=== PATIENT | female | born 1960 | race Caucasian/White ===

== ENCOUNTER → 2016-06-12 | Outpatient (CLI) | payer OTHER ==
[~2016-06-12] MED LIST: ACCUNEB 0.1.25 MG/3 INH; AMBIEN10 M1 PO; ANTIBIOTIC O500 U/GM TP; ATARAX25 MG PO; ATENOLOL100 M1 PO; ATENOLOL50 MG PO; ATROVENT I0.5 MG/2.5 INH; BENZONATATE100 M1 PO; BRIN20TA PO; CARAFATE1 G1 PO; CETIRIZINE10 MG PO; CIPRO500 MG PO; CIPROFLOXACIN500 MG PO; CLEOCIN150 MG PO; DARVOCET N 1001 TAB PO; DEXALONE30 MG PO; DICYCLOMINE10 MG PO; DOXYCYCLINE MO100 MG PO; FLEXERIL5 MG PO; Flovent 220 M220 MCG INH; HYDROCODONE BIT1 T11 PO; IMDUR SA30 MG PO; IMITREX100 MG PO; LEVAQUIN750 M1 PO; LEVOFLOXACIN500 MG PO; LEVOTHYROXIN0.025 MG PO; LEVOTHYROXINE0.05 MG PO; LISINOPRIL10 M1 PO; MEDROL DOSEPAK4 MG PO; METOCLOPRAMIDE10 MG PO; NYAMYC100000 U/G TP; OMEPRAZOLE40 MG PO; PANTOPRAZOLE SO40 MG PO; PERCOCET 325 MG1 TA2 PO; PREDNICOT20 MG PO; PREDNISONE20 MG PO; PREDNISONE50 MG PO; PROVENTIL0.09 MG/AC INH; RANEXA500 M1 PO; SEPTRA DS 800 M1 TAB PO; TESSALON PERLE200 MG PO; TOPAMAX50 MG PO; TRAMADOL HCL50 MG PO; VENTOLIN H0.09 MG/AC INH; VERAPAMIL SR240 M1 PO; VERAPAMIL240 MG PO; VIBRAMYCIN100 MG PO; VICODIN 5-3001 EACH PO; VICODIN 5/500 505 MG PO; VITAMIN D-32000 UNIT PO; XANAX0.25 MG PO; ZOFRAN4 MG PO; ZOLOFT100 MG PO
== END | disposition home or self-care (01) ==
LOC: RAD 09:19
DX: M79.602 Pain in left arm (principal); M79.645 Pain in left finger(s); R20.2 Paresthesia of skin

== ENCOUNTER 2017-01-15 20:25 | Emergency (ER) | payer OTHER ==
[~2017-01-15] VITALS: Ht 165.1 cm; Wt 163.3 kg
[2017-01-15 20:41] LABS: BASO # 0.1 10*3/uL (0.0-0.1); BASO % 0.5 % (0.0-1.0); EOS # 0.2 10*3/uL (0.0-0.4); EOS % 1.3 % (1.0-4.0); HEMATOCRIT 49.6 % (37.0-47.0); HEMOGLOBIN 16.9 g/dl (12.0-16.0); LYMPH # 3.1 10*3/uL (1.3-4.4); LYMPH % 21.5 % (27.0-41.0); MEAN CELL VOLUME 97.4 fl (81.0-99.0); MEAN CORPUSCULAR HGB 33.2 pg (27.0-31.0); MEAN CORPUSCULAR HGB CONC 34.1 g/dl (33.0-37.0); MEAN PLATELET VOLUME 9.3 fl (9.6-12.3); MONO # 0.8 10*3/uL (0.1-1.0); MONO % 5.7 % (3.0-9.0); NEUT # 10.1 10*3/uL (2.3-7.9); NEUT % 70.5 % (47.0-73.0); PLATELET COUNT AUTOMATED 271 10*3/uL (130-400); RED BLOOD COUNT 5.09 10*6/uL (4.10-5.10); RED CELL DISTRI WIDTH 14.5 % (0-14.5); WHITE BLOOD COUNT 14.3 10*3/uL (4.8-10.8)
[2017-01-15 20:49] LABS: ACT PARTIAL THROMBO TIME 24.4 SECONDS (20.8-31.5)
[2017-01-15 21:00] LABS: ALBUMIN 3.7 gm/dl (3.1-4.5); ALKALINE PHOSPHATASE 85 U/L (45-117); BUN 16 mg/dl (7-24); CHLORIDE 102 mmol/L (98-107); CREATININE 1.04 mg/dL (0.55-1.02); POTASSIUM 4.2 mmol/L (3.5-5.1); SGOT/AST 11 IU/L (3-35); SGPT/ALT 25 U/L (12-78); SODIUM 137 mmol/L (136-145); TOTAL PROTEIN 7.4 gm/dL (6.4-8.2)
[2017-01-15 21:02] LABS: TROPONIN I < 0.015 ng/ml (<0.045)
[2017-01-15 22:00] VITALS: BP 130/66
[2017-01-15] MEDS ORDERED: PROTONIX40 MG PO (22:19)
== END 2017-01-15 22:20 | disposition home or self-care (01) ==
LOC: ED 20:25
PROVIDERS: Emergency Medicine Emergency Medical Services
DX: K21.9 Gastro-esophageal reflux disease without esophagitis (principal); R07.9 Chest pain, unspecified; G89.29 Other chronic pain; M54.5 Low back pain; I95.9 Hypotension, unspecified; E03.9 Hypothyroidism, unspecified; Z98.890 Other specified postprocedural states; Z88.0 Allergy status to penicillin; Z88.5 Allergy status to narcotic agent; Z79.899 Other long term (current) drug therapy

== ENCOUNTER 2017-02-14 23:49 | Emergency (ER) | payer OTHER ==
[~2017-02-14] VITALS: Ht 160 cm; Wt 114.3 kg
[~2017-02-14 23:49] MED LIST changes: +PROTONIX40 MG PO
[2017-02-14 23:54] VITALS: BP 147/68
== END 2017-02-15 00:25 | disposition home or self-care (01) ==
LOC: ED 23:49
DX: S61.216A Laceration without foreign body of right little finger without damage to nail, initial encounter (principal); F17.200 Nicotine dependence, unspecified, uncomplicated; Z88.0 Allergy status to penicillin; Z88.6 Allergy status to analgesic agent; Z79.899 Other long term (current) drug therapy; W25.XXXA Contact with sharp glass, initial encounter; Y93.G1 Activity, food preparation and clean up; Y92.89 Other specified places as the place of occurrence of the external cause; Y99.8 Other external cause status

== ENCOUNTER → 2017-02-21 | Outpatient (CLI) | payer OTHER | END | disposition home or self-care (01) | LOC: CT 10:40 | DX: M51.36 Other intervertebral disc degeneration, lumbar region (principal); M12.88 Other specific arthropathies, not elsewhere classified, other specified site; M51.27 Other intervertebral disc displacement, lumbosacral region; R10.2 Pelvic and perineal pain; M54.16 Radiculopathy, lumbar region ==

== ENCOUNTER 2020-02-06 15:43 | Inpatient (IN) | payer OTHER ==
[~2020-02-06] VITALS: Ht 167.6 cm; Wt 107.7 kg
[2020-02-06] VITALS (20 sets, daily range): BP systolic 62–119; BP diastolic 00–80
[~2020-02-06 15:43] MED LIST changes: +FLAGYL500 MG PO
[2020-02-06] MEDS ORDERED: NEURONTIN300 MG PO (15:46)
[2020-02-06] MEDS ORDERED: LACTULOSE10 GM/15 M PO (15:47)
[2020-02-06] MEDS ORDERED: ENTRESTO 49 MG1 EACH PO (15:48)
--- NOTE | 2020-02-06 16:37 | NUR ---
PATIENT DENIES WOUNDS A&OX3.
[2020-02-06 17:00] LABS: BASO # 0.1 10*3/uL (0.0-0.1); BASO % 0.4 % (0.0-1.0); EOS # 0.1 10*3/uL (0.0-0.4); EOS % 0.9 % (1.0-4.0); HEMATOCRIT 36.7 % (37.0-47.0); LYMPH # 1.5 10*3/uL (1.3-4.4); MEAN CELL VOLUME 90.8 fl (81.0-99.0); MEAN CORPUSCULAR HGB 25.7 pg (27.0-31.0); MEAN CORPUSCULAR HGB CONC 28.3 g/dl (33.0-37.0); MEAN PLATELET VOLUME 9.9 fl (9.6-12.3); MONO # 0.7 10*3/uL (0.1-1.0); MONO % 5.9 % (3.0-9.0); NEUT # 9.4 10*3/uL (2.3-7.9); PLATELET COUNT AUTOMATED 296 10*3/uL (130-400); RED BLOOD COUNT 4.04 10*6/uL (4.10-5.10); RED CELL DISTRI WIDTH 24.2 % (0-14.5); WHITE BLOOD COUNT 11.9 10*3/uL (4.8-10.8)
[2020-02-06 17:33] LABS: ALKALINE PHOSPHATASE 92 U/L (45-117); BUN 39 mg/dl (7-24); CHLORIDE 107 mmol/L (98-107); POTASSIUM 3.8 mmol/L (3.5-5.1); SGOT/AST 8 IU/L (3-35); SGPT/ALT 21 U/L (12-78); SODIUM 138 mmol/L (136-145); TOTAL PROTEIN 6.5 gm/dL (6.4-8.2)
[2020-02-06 17:40] LABS: TROPONIN I < 0.015 ng/ml (<0.045)
--- NOTE | 2020-02-06 17:40 | NUR ---
PATIENT BLOOD GLUCOSE COMES BACK FROM LAB CRITICAL AT 38. DR SIMON NOTIFIED. MEAL TRAY HAS BEEN ORDERED STAT FOR PATIENT AND PATIENT GIVEN TWO ORANGE JUICES WITH 4 SUGAR PACKETS TOTAL AND ALSO NIDIA CRACKERS WITH PEANUT BUTTER.
--- NOTE | 2020-02-06 17:45 | NUR ---
PATIENT DRANK THE ORANGE JUICE AND ATE THE NIDIA CRACKERS WITH PEANUT BUTTER.
--- NOTE | 2020-02-06 18:16 | NUR ---
PATIENT BGL IS NOW AT [address] SIMON NOTIFIED.
--- NOTE | 2020-02-06 19:10 | NUR ---
PATIENT REPORT GIVEN TO SYDNI RN AT THIS TIME.
--- NOTE | 2020-02-06 19:48 | NUR ---
PT SELLPING AT THIS TIME CALL LIGHT IN REACH. SYDNI LAM RN.
--- NOTE | 2020-02-06 21:00 | NUR ---
A 59, admitted to ICCU, under the services of JERMAIN Best DO with a diagnosis of HYPOTENSION, FLUID OVERLOAD, CHF, AND RENAL FAILURE. Chief complaint is LOW B/P. Patient arrived via stretcher from ER. Monitor applied. Initial assessment completed. Vital signs taken and recorded. JERMAIN BEST DO notified of admission to the unit. Orders received. See assessment for past medical history, medications and allergies. Patient and/or family oriented to unit. [facility] ICCU visitation policy reviewed. Clothing/patient valuable form completed. CAIT GARCIA A
--- NOTE | 2020-02-06 21:00 | NUR ---
A 59, admitted to ICCU, under the services of JERMAIN Best DO with a diagnosis of HYPOTENSION. Chief complaint is SOB. Patient arrived via stretcher from ER. Monitor applied. Initial assessment completed. Vital signs taken and recorded. JERMAIN BEST DO notified of admission to the unit. Orders received. See assessment for past medical history, medications and allergies. Patient and/or family oriented to unit. [facility] ICCU visitation policy reviewed. Clothing/patient valuable form completed. DEBORAH CORONA
--- NOTE | 2020-02-06 21:22 | NUR ---
UNABLE TO VERIFY HOME MEDICATIONS PT MUMBLING AND DOESNT KNOW HOME MEDS. MED REC UPDATED IN ER. CAIT GARCIA RN
[2020-02-06 21:28] LABS: BILIRUBIN Negative (Negative); BLOOD Negative (Negative); CLARITY Cloudy (Clear); COLOR Yellow (Yellow); GLUCOSE Negative (Negative); KETONE Negative (Negative); LEUKO ESTERASE 2+ (Negative); NITRITE Negative (Negative); SPECIFIC GRAVITY 1.015 (1.001-1.030); UROBILINOGEN 0.2 E.U./dl (0.0-1.0)
--- NOTE | 2020-02-06 21:38 | NUR ---
CONSULTS FOR DR. GUILLAUME (TALKED WITH DR. ANDERSON) AND DR. HAYNES (TALKED WITH DR. CASTRO) COMPLETE. NO FURTHER ORDERS RECEIVED.
[2020-02-06 21:49] LABS: BACTERIA 1+; EPITHELIAL CELLS 31-40; RBC 0-2 rbc/hpf (0-2)
[2020-02-06 21:50] LABS: YEAST 1+
--- NOTE | 2020-02-06 22:40 | NUR ---
PT. MORE DROWSY. BEDSIDE GLUC 115, PT. WARM AND DRY. ABG'S ORDERED, AMMONIA LEVEL AND LACTIC ACID ORDERED AND DR. WHITE NOTIFIED. CAIT GARCIA RN
[2020-02-06 23:19] LABS: ARTERIAL BLOOD GAS PH 7.209 (7.35-7.45)
[2020-02-06 23:20] LABS: ABG BASE EXCESS -8.5 mmol/L (-2.0-2.0)
[2020-02-07] VITALS (89 sets, daily range): BP systolic 74–136; BP diastolic 27–93
--- NOTE | 2020-02-07 | NUR ---
DR. WHITE NOTIFIED OF AMMONIA LEVEL, ABG RESULTS AND URINE RESULTS. CAIT GARCIA RN
--- NOTE | 2020-02-07 04:58 | NUR ---
PT. PULLED IV OUT IN R HAND. RESTARTED IN L ARM. CLING WRAP APPLIED TO IV ONCE AGAIN. CAIT GARCIA RN
[2020-02-07 06:30] LABS: ALBUMIN 3.1 gm/dl (3.1-4.5); CREATININE 2.73 mg/dL (0.55-1.02); FREE T4 0.92 ng/dl (0.76-1.46); POTASSIUM 3.3 mmol/L (3.5-5.1); TOTAL PROTEIN 7.2 gm/dL (6.4-8.2)
[2020-02-07 06:31] LABS: BASO # 0.1 10*3/uL (0.0-0.1); BASO % 0.5 % (0.0-1.0); EOS # 0.2 10*3/uL (0.0-0.4); EOS % 1.7 % (1.0-4.0); HEMATOCRIT 38.6 % (37.0-47.0); LYMPH # 1.4 10*3/uL (1.3-4.4); LYMPH % 14.2 % (27.0-41.0); MEAN CELL VOLUME 88.1 fl (81.0-99.0); MEAN CORPUSCULAR HGB 25.6 pg (27.0-31.0); MEAN PLATELET VOLUME 9.7 fl (9.6-12.3); MONO # 0.5 10*3/uL (0.1-1.0); MONO % 5.5 % (3.0-9.0); NEUT # 7.6 10*3/uL (2.3-7.9); NEUT % 77.5 % (47.0-73.0); PLATELET COUNT AUTOMATED 337 10*3/uL (130-400); RED BLOOD COUNT 4.38 10*6/uL (4.10-5.10); RED CELL DISTRI WIDTH 23.8 % (0-14.5); WHITE BLOOD COUNT 9.8 10*3/uL (4.8-10.8)
[2020-02-07 06:34] LABS: THYROID STIM HORMONE (HS) 1.94 uIU/ml (0.358-4.75)
[2020-02-07 06:43] LABS: ACT PARTIAL THROMBO TIME 27.1 SECONDS (20.0-32.1)
--- NOTE | 2020-02-07 08:22 | NUR ---
PHYSICAL THERAPY Pt admitted with hypotension,CHF and renal failure please consult PT if pt has a decline in functional status below baseline thank you Siomara Truong PT
--- NOTE | 2020-02-07 08:35 | NUR ---
PT IS AWAKE AND ALERT. WHEN ASKED QUESTIONS R/T DATE AND PRESIDENT PT FIRST ANSWERS "[facility]" THEN SHE STOPS FOR A SECOND THEN ANSWERS THE QUESTIONS APPROPRIATELY. PT REMAINS ON A LEVOPHED GTT. MAP IS 87 AT THIS TIME. LEVOPHED GTT TITRATED DOWN TO 11MCG/MIN. LUNG MURRELL DIM. PT DENIES A COUGH AT THIS TIME. ABD. DISTENDED WITH ACTIVE BOWEL SOUNDS. MATIAS CATH PATENT FOR STRAW COLORED URINE. NO PERIPHERAL EDEMA NOTED AT THIS TIME. UPDATED PT ON HER CONDITION AND PLAN OF CARE. HER QUESTIONS WERE ANSWERED. BED ALARM ON FOR PT PROTECTION.
--- NOTE | 2020-02-07 10:18 | NUR ---
Nursing screen received and chart was reviewed. Patient is a 59 year old female admitted with hypotension and fluid overload. If patient has a decline in ADLs, tranfsers or functional mobility please send OT orders. Thank you. Page Cortez OTR/L
--- NOTE | 2020-02-07 11:40 | NUR ---
DR NIELSEN, DR RAMOS AND DR GUILLAUME IN TO SEE PT. NEW ORDERS RECEIVED.
--- NOTE | 2020-02-07 12:01 | NUR ---
Nitroglycerin Separator Operator in to talk to patient. Patient states lives at home with her . There are 0 steps in the home. There are 4 outside steps. Physician: Dr. Rafael Tran Pharmacy: [facility] Home health services: none Patient's level of ADLs: MINIMAL ASSIST Patient has working utilities: yes DME: cane, walker, O2 @ home, she states 10L at home, portable O2 tanks, nebulizer, O2 supplier medical supply Follow-up physician's appointment after d/c: will be made by the hospitalist nurse director upon discharge Does patient want to access PORTAL?: no Discharge plan discussed with patient. She lives at home with her . She states she is independent in her ADLs and ambulates with either a walker or a cane. Discussed short term rehab and she declines, stating she will return home with her . Discussed home health care services and she declines stating she will return home with her . Explained home health care services would come to her house for nursing and therapy and she declines. Will reach out to . She is unsure of discharge transportation at this time. DAVID HANDY
[2020-02-07 12:02] LABS: ABG BASE EXCESS -4.1 mmol/L (-2.0-2.0); ARTERIAL BLOOD GAS PH 7.317 (7.35-7.45)
--- NOTE | 2020-02-07 12:09 | NUR ---
Attempted to reach , Wilberto, with no success. Left voicemail. Awaiting return call.
--- NOTE | 2020-02-07 12:43 | NUR ---
DR RAMOS NOTIFIED OF ABG RESULTS. NEW ORDERS RECEIVED FOR BIPAP AND ABG TO BE DRAWN 2 HOURS AFTER STARTED.
--- NOTE | 2020-02-07 14:53 | NUR ---
Received call from [facility]. Patient was in [facility] from 01/15-01/30 with respiratory failure. She states they tried to send the patient to [facility] and the patient refused. Chente's cell phone # [phone] if she can provide any assistance.
--- NOTE | 2020-02-07 16:41 | NUR ---
DR RAMOS UPDATED THAT PT REFUSES BIPAP AND THAT PT IS ORDERED FOR NUCLEAR LUNG SCAN. DR RAMOS STATED THAT JUST INFORM PT THAT IF SHE WILL NOT WEAR THE BIPAP SHE MAY HAVE TO BE INTUBATED LATER. HE ALSO ORDERED TO D/C LUNG SCAN. PT WILL NOT TOLERATE IT AT THIS TIME.
--- NOTE | 2020-02-07 16:49 | NUR ---
DR GARRETT UPDATED ON PLAN OF CARE.
--- NOTE | 2020-02-07 17:00 | NUR ---
MEDICATED PT PER PRN ORDER WITH ZOFRAN FOR C/O NAUSEA AFTER ORDER RECEIVED FROM DR GARRETT.
--- NOTE | 2020-02-07 17:40 | NUR ---
PT STATES RELIEF OF NAUSEA WITH EARLIER ZOFRAN.
--- NOTE | 2020-02-07 20:44 | NUR ---
PT. RESTING IN BED. COMPLAINTS OF NAUSEA, ZOFRAN GIVEN PRIOR TO SHIFT. HEP LOCKS IN RA AND LA. LUNGS DIMINISHED BILAT, PULSE OX 96% ON 5L NC. ABDOMEN FIRMLY DISTENDEDE AND NORMO. TRACE ANKLE EDEMA NOTED. MATIAS CATH DRAINING A CLEAR YELLOW URINE. RESP. EASY AND REG, NO DISTRESS. CAIT GARCIA RN
[2020-02-08] VITALS (40 sets, daily range): BP systolic 95–136; BP diastolic 40–81
--- NOTE | 2020-02-08 01:42 | NUR ---
RESTING QUIET ON BIPAP AT THIS TIME. NO CHANGE IN LEVAPHED AT THIS TIME.
[2020-02-08 06:12] LABS: CREATININE 1.24 mg/dL (0.55-1.02); POTASSIUM 3.6 mmol/L (3.5-5.1)
[2020-02-08 06:14] LABS: TOTAL PROTEIN 6.9 gm/dL (6.4-8.2)
[2020-02-08 06:25] LABS: BASO # 0.1 10*3/uL (0.0-0.1); BASO % 1.2 % (0.0-1.0); EOS # 0.2 10*3/uL (0.0-0.4); EOS % 2.8 % (1.0-4.0); HEMATOCRIT 38.7 % (37.0-47.0); LYMPH # 1.4 10*3/uL (1.3-4.4); LYMPH % 18.5 % (27.0-41.0); MEAN CELL VOLUME 88.2 fl (81.0-99.0); MEAN CORPUSCULAR HGB 25.7 pg (27.0-31.0); MEAN CORPUSCULAR HGB CONC 29.2 g/dl (33.0-37.0); MEAN PLATELET VOLUME 9.6 fl (9.6-12.3); MONO # 0.6 10*3/uL (0.1-1.0); MONO % 8.2 % (3.0-9.0); NEUT # 5.3 10*3/uL (2.3-7.9); NEUT % 68.7 % (47.0-73.0); PLATELET COUNT AUTOMATED 332 10*3/uL (130-400); RED BLOOD COUNT 4.39 10*6/uL (4.10-5.10); RED CELL DISTRI WIDTH 23.9 % (0-14.5); WHITE BLOOD COUNT 7.8 10*3/uL (4.8-10.8)
[2020-02-08 07:18] LABS: ABG BASE EXCESS -1.3 mmol/L (-2.0-2.0); ARTERIAL BLOOD GAS PH 7.301 (7.35-7.45)
--- NOTE | 2020-02-08 11:00 | NUR ---
Occupational Therapy evaluation completed on ICCU with full evaluation to follow. Recommend occupational therapy per plan of care and SNF upon discharge. Thank you for this referral. Michelle Null OTR/L
--- NOTE | 2020-02-08 11:49 | NUR ---
CM in to see patient. She is sitting up in her bedside recliner. Discussed short term rehab as suggested by therapy. She refuses. She states "I am going home." Discussed home health care services and she declines. She states "I have my ." CM will continue to follow for any discharge planning needs. When medically stable she will be discharged to home.
--- NOTE | 2020-02-08 12:26 | NUR ---
PT. OFF BIPAP ON HFNC AT 15. SAT 94. PT IS RESTING QUIETYLY.
--- NOTE | 2020-02-08 13:36 | NUR ---
Up to chair. for 45 min w/ PT. Titrating levophed down.
--- NOTE | 2020-02-08 13:36 | NUR ---
video visit w/ dr. Ayana love to transfer to telemetry when levophed is off.
--- NOTE | 2020-02-08 17:25 | NUR ---
PATIENT STATES PAIN 9/10 IN HER LEGS, CHRONIC FROM OLD ACCIDENT. TAKES NORCO AT HOME DR BARRY MADE AWARE
--- NOTE | 2020-02-08 18:36 | NUR ---
Medicated for c/o pain 11/17.
--- NOTE | 2020-02-08 22:24 | NUR ---
REFUSING BIPAP THIS SHIFT. STATES FEELING NAUSEATED. JUST TOOK HER LACTULOSE. WILL MONITOR
--- NOTE | 2020-02-08 23:47 | NUR ---
IV AMPARO OUT. NEW SITE INSERTED.IV started left hand with #20 protective cath after 1 attempts. Site prepped with Chloroprep. Sterile dressing applied. Patient tolerated procedure well. DUSTIN ESPINOZA
[2020-02-09] VITALS: BP 119/55
--- NOTE | 2020-02-09 00:34 | NUR ---
FER MODERATLY EFECTIVE FOR NAUSES. SITTING UP WATCHING TV. INCREASED FLATUS NOTED
--- NOTE | 2020-02-09 00:35 | NUR ---
FER MODERATLY EFECTIVE FOR NAUSES. SITTING UP WATCHING TV. INCREASED FLATUS NOTED
--- NOTE | 2020-02-09 02:50 | NUR ---
FER MODERATLY EFECTIVE FOR NAUSES. SITTING UP WATCHING TV. INCREASED FLATUS NOTED
[2020-02-09 04:00] VITALS: BP 114/49
[2020-02-09 06:11] LABS: CREATININE 1.2 mg/dL (0.55-1.02); POTASSIUM 3.6 mmol/L (3.5-5.1); TOTAL PROTEIN 6.9 gm/dL (6.4-8.2)
[2020-02-09 06:14] LABS: BASO # 0.1 10*3/uL (0.0-0.1); BASO % 0.8 % (0.0-1.0); EOS # 0.2 10*3/uL (0.0-0.4); EOS % 2.1 % (1.0-4.0); HEMATOCRIT 39.2 % (37.0-47.0); LYMPH # 1.9 10*3/uL (1.3-4.4); LYMPH % 22.3 % (27.0-41.0); MEAN CELL VOLUME 88.5 fl (81.0-99.0); MEAN CORPUSCULAR HGB CONC 29.3 g/dl (33.0-37.0); MEAN PLATELET VOLUME 10.1 fl (9.6-12.3); MONO # 0.6 10*3/uL (0.1-1.0); MONO % 7.2 % (3.0-9.0); NEUT # 5.7 10*3/uL (2.3-7.9); PLATELET COUNT AUTOMATED 296 10*3/uL (130-400); RED BLOOD COUNT 4.43 10*6/uL (4.10-5.10); RED CELL DISTRI WIDTH 23.3 % (0-14.5); WHITE BLOOD COUNT 8.6 10*3/uL (4.8-10.8)
[2020-02-09 08:00] VITALS: BP 128/75
[2020-02-09 09:01] LABS: ABG BASE EXCESS -0.4 mmol/L (-2.0-2.0); ARTERIAL BLOOD GAS PH 7.318 (7.35-7.45)
--- NOTE | 2020-02-09 09:01 | NUR ---
Awake and alert this AM, No c/o. Dr. Hernandez and Jarad in to evaulate. Transfer ordered recieved. Multifocal Lens Assembler aware of transfer order.
--- NOTE | 2020-02-09 10:25 | NUR ---
Up to BSC for small soft bm. partial bath at bedside then assisted to chair. Awaiting bed assignment.
--- NOTE | 2020-02-09 11:01 | NUR ---
CM in to see patient. No new needs or request at this time. Discussed short term rehab and home health care services and she continues to refuse. When medically stable she will be discharged to home.
--- NOTE | 2020-02-09 11:24 | NUR ---
PHYSICAL THERAPY Patient presented [facility] with 3 liters of spO2 VIA NASAL CANULA and attached to telemetry. Patient has report of no pain. Patient gives informed consent for treatment. Patient was identified by name and on wristband. Patient O2 SAT was recorded as 93% prior to therapy session. Patient performed STS <> bedside chair with SBA. Patient ambulated with Wh Walker and Close Supervision with two therapists managing O2 TANK, portable telemtry and monitoring O2 and pulse. Patient ambulated with Wh Walker and Close Supervision for 40' x 2 with no LOB and Minimal SOB with O2 SATS/PULSE reorded at 86%/118 at the end of the first 40' x 1. Patient standing rest break at 40' x 1. Patient sat in bedside chair with SBA. Patient was left in sitting in bedside chair with 3 liters of spO2 connected to wall outlet and telemetry reconnected to main monitor. Patient call light within reach. Patient was 1:1 withthitiburcio WHEEL INSTALLER for 15 minutes total. JANETTE BARTH WHEEL INSTALLER
--- NOTE | 2020-02-09 11:25 | NUR ---
OT NOTE Pt was seen this A.M. 1:1 for 20 minute OT session. Upon arrival pt was sitting upright in the recliner. Pt identified by name and and had no complaints at this time. Pt presented to therapy with continuous 3L-O2 via NC which she remained on throughout the entire session. Pt's resting SpO2 read 93% and heart rate 103 bpm. While seated pt donned B socks with supervision while forward flexed at the waist. Pt was educated on energy conservation technique of bringing her leg up to knee level to help conserve energy and avoid SOB, pt was still able to complete with supervision. Sit to stand completed from chair level with SBA followed by standing pivot to the bedside commode with SBA. There she transferred on/off bedside commode and completed all toileting tasks with SBA. Pt then completed functional mobility around the room with SBA and use of w/w, after aprox 3 minutes of activity pt's SpO2 dropped to 89% and heart rate 113 bpm. After aprox 15 seconds SpO2 raised back to 90%. Pt was left sitting upright in the recliner with call light in hand, tray table in place, and ICCU nurse notified. Continue with rec D/C plan to SNF. SRIKANTH Addison
--- NOTE | 2020-02-09 11:29 | NUR ---
Medicated for c/o generalized pain scale 9/10. pt. experiences chronic pain and states that 2-3/10 is tolerable for her .
[2020-02-09 12:00] VITALS: BP 122/99
--- NOTE | 2020-02-09 13:35 | NUR ---
SAtates pain med was effective in reducing pain to scale 8/10.
--- NOTE | 2020-02-09 15:12 | NUR ---
Nutritional Supprt Services Note: Appetite is good for meals, She receives a regular diet as ordered. Ht.5'6 Wt.236# IBW 120-140. Pt declines need for diet. No other nutrition intervention needed at this time. Will follow as needed. Malou Disla Rdn Ld
[2020-02-09 16:00] VITALS: BP 135/61
--- NOTE | 2020-02-09 18:42 | NUR ---
Requested 2 tylenol for headache , given. Remains up in chair. family brought in cell phone and it was recieved and given to this pt. Continue awaiting bed assignment.
--- NOTE | 2020-02-09 19:49 | NUR ---
194 FER IV FOR C/O'S NAUSEA. NO EMESIS NOTED. WILL MONITOR. SITTING IN RECLINER CHAIR AT BEDSIDE. ALERT AND PLEASANT. PULSE OX 95% ON 5L. AFEBRILE. HEP LOCK INTACT. MO DISTRESS NOTED.
[2020-02-09 20:00] VITALS: BP 135/69
--- NOTE | 2020-02-09 20:49 | NUR ---
EARLIER ZOFRAN EFFECTIVE.
--- NOTE | 2020-02-09 21:52 | NUR ---
NORCO 1 PO GIVEN FOR C/O'S PAIN. RESTING IN BED WATCHING TV. WILL MONITOR.
--- NOTE | 2020-02-09 22:52 | NUR ---
EARLIER NORCO EFFECTIVE.
[2020-02-10] VITALS: BP 121/65
--- NOTE | 2020-02-10 | NUR ---
0000 BIPAP APPLIED. TOLERATING WELL 0400 BIPAP REMOVED. PT KEEPS TAKING IT OFF TO GET UP TO BSC. DESATS TO 69% WITHOUT 02. PLACED BACK ON NC.
--- NOTE | 2020-02-10 05:57 | NUR ---
NORCO PO FOR C/O'S H/A. WILL MONITOR. 02 INTACT. VIA NC. HEP LOCK INTACT. PULSE OX 95%. CONDITION GUARDED.
[2020-02-10 06:06] LABS: CREATININE 1.15 mg/dL (0.55-1.02); POTASSIUM 3.3 mmol/L (3.5-5.1)
[2020-02-10 06:08] LABS: BASO # 0.1 10*3/uL (0.0-0.1); BASO % 0.7 % (0.0-1.0); EOS # 0.3 10*3/uL (0.0-0.4); HEMATOCRIT 35.3 % (37.0-47.0); LYMPH # 2.1 10*3/uL (1.3-4.4); LYMPH % 24.9 % (27.0-41.0); MEAN CORPUSCULAR HGB 26.2 pg (27.0-31.0); MEAN CORPUSCULAR HGB CONC 29.7 g/dl (33.0-37.0); MEAN PLATELET VOLUME 9.5 fl (9.6-12.3); MONO # 0.6 10*3/uL (0.1-1.0); MONO % 7.1 % (3.0-9.0); NEUT # 5.3 10*3/uL (2.3-7.9); NEUT % 63.7 % (47.0-73.0); PLATELET COUNT AUTOMATED 274 10*3/uL (130-400); RED BLOOD COUNT 4.01 10*6/uL (4.10-5.10); RED CELL DISTRI WIDTH 22.5 % (0-14.5); TOTAL PROTEIN 6.5 gm/dL (6.4-8.2); WHITE BLOOD COUNT 8.4 10*3/uL (4.8-10.8)
[2020-02-10 08:00] VITALS: BP 123/71
[2020-02-10 09:15] LABS: ABG BASE EXCESS 0.7 mmol/L (-2.0-2.0); ARTERIAL BLOOD GAS PH 7.355 (7.35-7.45)
--- NOTE | 2020-02-10 09:27 | NUR ---
CM in to see patient. Discussed home health care services and she is agreeable. When provided with a list of agencies she chose [facility]. Notified hospitalist nurse director. When medically stable she will be discharged to home with [facility] services.
--- NOTE | 2020-02-10 10:24 | NUR ---
OT NOTE Pt was seen this A.M. 1:1 for 26 minute OT session. Upon arrival pt was supine in bed. Pt identified by name and and had no complaints at this time. Pt presneted to therapy with continuous 3L-O2 via [facility] she remained on throughout the entire session. Pt's resting SpO2 read 93%. Pt transferred supine to sit EOB with SBA. Upon arrival to EOB pt's SpO2 dropped to 88% and raised to 93% with aprox 10 seconds. While sitting EOB pt donned B socks with SBA using compensatory technique of bringing her legs up to bed level. Sit to stand completed from bed level with CGA for safety and use of w/w for UE support followed by functional mobility to the bedside commode with CGA. There she transferred on/off bedside commode with CGA, clothing management completed with CGA, and toilet hygiene completed MN while seated. Functional mobility was then completed around the room with CGA and use of w/w. Throughout pt's Spo2 dropped to 87% and raised to 90% within aprox 20 seconds. After returning to the recliner pt completed BUE towel exercises over all planes for 1 X 10 with min resistance to increase and restore maximum functional strength and use. Pt was left sitting upright in the recliner with call light in reach, tray table in place, and ICCU nurse notified. Continue with rec D/C plan to SNF. SRIKANTH Addison
--- NOTE | 2020-02-10 10:55 | NUR ---
PHYSICAL THERAPY Patient presented to therapy in sitting in bedside chair with 3 liters of spO2 VIA NASAL CANULA. Patient gives informed consent for treatment. Patient was identified by name nd on wristband. Patient reports no complaints. Portable Telemetry machine attached and portable O2 tank in tow with 3 liters. Patient completed STS from bedside chair with SBA. Patient ambulated 90' x [facility] to room with no LOB and two brief standing rest breaks with O2 sat dropping to 87% and pulse 113 with 90' gait. Patient sat in bedside chair and performed bilateral LE ther ex 2 x 10 reps each in all planes of movement for strengthening the LEs including LAQs, marches, heel/toe raises and hip abduction. Patient was left in bedside chair with call light within reach, O2 connected to wall outlet with 3 liters of spO2 and LEs left in low position. Patient O2 SAT returned to 91% - 93% post ambulating and pulse at 87 within 1 minute. Patient was 1:1 with this ELECTROMECHANICAL ASSEMBLER for 21 minutes total. JANETTE BARTH ELECTROMECHANICAL ASSEMBLER
--- NOTE | 2020-02-10 11:36 | NUR ---
Faxed home health referral to [facility] along with face to face and clinical
[2020-02-10 12:00] VITALS: BP 105/67
[2020-02-10] MEDS ORDERED: FUROSEMIDE40 MG PO (14:32)
[2020-02-10] MEDS ORDERED: KLOR-CON M2020 ME1 PO (14:32)
--- NOTE | 2020-02-10 14:38 | NUR ---
Notified Medina at [facility] of patient's discharge today.
[2020-02-10] MEDS ORDERED: XARE20MG PO (15:14)
[2020-02-10 16:00] VITALS: BP 112/57
--- NOTE | 2020-02-10 16:30 | NUR ---
Discharge instruction given, pt. voiced understanding. Informed that she would need to take her xarelto this evening. Discharged to home [facility] to follow.
--- NOTE | 2020-02-11 07:41 | NUR ---
PHYSICAL THERAPY CO-SIGN I approve of the Physical Therapy notes written above. Siomara Truong PT
--- NOTE | 2020-02-11 07:42 | NUR ---
OCCUPATIONAL THERAPY CO-SIGN I approve of the Occupational Therapy notes written above. KEERTHI POWERS, OTR/L
== END 2020-02-10 16:30 | disposition home health service (06) | DRG 133 ==
LOC: ED 15:43 → EDHOLD 18:46 → ICCU 18:46 → EDHOLD 19:14 → ICCU 20:16
PROVIDERS: Family Medicine; Internal Medicine; Internal Medicine Critical Care Medicine; Student in an Organized Health Care Education/Training Program; ADMIT Internal Medicine; ATTEND Internal Medicine
PROC: 5A09357 Assistance with Respiratory Ventilation, Less than 24 Consecutive Hours, Continuous Positive Airway Pressure (ICD-10-PCS; principal; 2020-02-08)
DX: J96.21 Acute and chronic respiratory failure with hypoxia (principal); I11.0 Hypertensive heart disease with heart failure; N17.0 Acute kidney failure with tubular necrosis; E87.2 Acidosis; E78.1 Pure hyperglyceridemia; E83.42 Hypomagnesemia; I95.9 Hypotension, unspecified; E78.5 Hyperlipidemia, unspecified; R00.0 Tachycardia, unspecified; R73.9 Hyperglycemia, unspecified; E87.6 Hypokalemia; J96.22 Acute and chronic respiratory failure with hypercapnia; E87.8 Other disorders of electrolyte and fluid balance, not elsewhere classified; E83.39 Other disorders of phosphorus metabolism; E72.20 Disorder of urea cycle metabolism, unspecified; N39.0 Urinary tract infection, site not specified; E03.9 Hypothyroidism, unspecified; K21.9 Gastro-esophageal reflux disease without esophagitis; I50.43 Acute on chronic combined systolic (congestive) and diastolic (congestive) heart failure; J44.9 Chronic obstructive pulmonary disease, unspecified; G93.41 Metabolic encephalopathy; B37.3 Candidiasis of vulva and vagina; E66.01 Morbid (severe) obesity due to excess calories; G47.33 Obstructive sleep apnea (adult) (pediatric); B96.20 Unspecified Escherichia coli [E. coli] as the cause of diseases classified elsewhere; Z16.12 Extended spectrum beta lactamase (ESBL) resistance; D64.9 Anemia, unspecified; K74.60 Unspecified cirrhosis of liver; Z20.828 Contact with and (suspected) exposure to other viral communicable diseases; K57.90 Diverticulosis of intestine, part unspecified, without perforation or abscess without bleeding; F17.210 Nicotine dependence, cigarettes, uncomplicated; Z88.5 Allergy status to narcotic agent; Z88.0 Allergy status to penicillin; Z91.041 Radiographic dye allergy status; Z91.048 Other nonmedicinal substance allergy status; Z98.891 History of uterine scar from previous surgery; Z90.49 Acquired absence of other specified parts of digestive tract; Z80.0 Family history of malignant neoplasm of digestive organs; Z82.49 Family history of ischemic heart disease and other diseases of the circulatory system; Z79.899 Other long term (current) drug therapy; Z86.711 Personal history of pulmonary embolism; Z68.38 Body mass index [BMI] 38.0-38.9, adult

== ENCOUNTER → 2021-04-10 | Outpatient (CLI) | payer OTHER ==
[~2021-04-10] MED LIST changes: +ENTRESTO 49 MG1 EACH PO; +FUROSEMIDE40 MG PO; +KLOR-CON M2020 ME1 PO; +LACTULOSE10 GM/15 M PO; +NEURONTIN300 MG PO; +XARE20MG PO
== END ==
LOC: RAD 15:54
PROVIDERS: ATTEND Preventive Medicine Occupational Medicine
DX: J43.9 Emphysema, unspecified (principal); I50.42 Chronic combined systolic (congestive) and diastolic (congestive) heart failure; R63.5 Abnormal weight gain

== ENCOUNTER 2021-06-06 22:18 | Inpatient (IN) | payer OTHER ==
[~2021-06-06] VITALS: Ht 162.6 cm; Wt 108.9 kg
[2021-06-06 22:20] VITALS: BP 111/72
[2021-06-06 22:53] LABS: HEMATOCRIT 53.2 % (37.0-47.0); MEAN CELL VOLUME 82.5 fl (81.0-99.0); MEAN CORPUSCULAR HGB 22.6 pg (27.0-31.0); MEAN CORPUSCULAR HGB CONC 27.4 g/dl (33.0-37.0); MEAN PLATELET VOLUME 9.2 fl (9.6-12.3); NUCLEATED RED BLOOD CELL 0.1 10*3/uL (0.0-0.0); NUCLEATED RED BLOOD CELL 0.6 % (0.0-0.0); PLATELET COUNT AUTOMATED 330 10*3/uL (130-400); RED BLOOD COUNT 6.45 10*6/uL (4.10-5.10); RED CELL DISTRI WIDTH 22.4 % (0-14.5); WHITE BLOOD COUNT 20.7 10*3/uL (4.8-10.8)
[2021-06-06 22:58] LABS: MANUAL DIFF REFLEX YES
[2021-06-06 23:08] LABS: ACT PARTIAL THROMBO TIME 36.4 SECONDS (20.0-32.1); INTERNATIONAL NORM RATIO 1.3 (2.0-3.5)
[2021-06-06 23:09] LABS: CREATININE 1.53 mg/dL (0.55-1.02); POTASSIUM 5.2 mmol/L (3.5-5.1); TOTAL PROTEIN 7.1 gm/dL (6.4-8.2)
[2021-06-06 23:17] LABS: PLATELET SUFFICIENCY NORMAL (NORMAL); TOTAL CELLS COUNTED 100 #CELLS
[2021-06-06 23:18] LABS: OVALOCYTES FEW
[2021-06-06 23:25] LABS: ABG BASE EXCESS -2.3 mmol/L (-2.0-2.0); ARTERIAL BLOOD GAS PO2 74.9 (80-90)
[2021-06-06 23:28] LABS: ARTERIAL BLOOD GAS PH 7.161 (7.35-7.45)
[2021-06-06 23:33] VITALS: BP 111/62
[2021-06-07] VITALS (11 sets, daily range): BP systolic 90–129; BP diastolic 38–71
[2021-06-07 01:27] LABS: ARTERIAL BLOOD GAS PO2 69.7 (80-90)
[2021-06-07 01:36] LABS: ABG BASE EXCESS -5.8 mmol/L (-2.0-2.0); ARTERIAL BLOOD GAS PH 7.131 (7.35-7.45)
[2021-06-07 04:36] LABS: MEAN CELL VOLUME 82.7 fl (81.0-99.0); MEAN CORPUSCULAR HGB 22.7 pg (27.0-31.0); MEAN CORPUSCULAR HGB CONC 27.4 g/dl (33.0-37.0); MEAN PLATELET VOLUME 8.9 fl (9.6-12.3); NUCLEATED RED BLOOD CELL 0.1 10*3/uL (0.0-0.0); NUCLEATED RED BLOOD CELL 0.3 % (0.0-0.0); PLATELET COUNT AUTOMATED 304 10*3/uL (130-400); RED BLOOD COUNT 6.53 10*6/uL (4.10-5.10); RED CELL DISTRI WIDTH 22.5 % (0-14.5); WHITE BLOOD COUNT 20.4 10*3/uL (4.8-10.8)
[2021-06-07 04:48] LABS: CREATININE 1.49 mg/dL (0.55-1.02); POTASSIUM 5.9 mmol/L (3.5-5.1); TOTAL PROTEIN 7.2 gm/dL (6.4-8.2)
[2021-06-07] MEDS ORDERED: VICO75300 PO (05:07)
[2021-06-07] MEDS ORDERED: THEO-24200 MG PO (05:09)
[2021-06-07] MEDS ORDERED: GLIPIZIDE2.5 MG PO (05:10)
[2021-06-07] MEDS ORDERED: ENTRESTO 97 MG1 EACH PO (05:11)
[2021-06-07] MEDS ORDERED: ZYPREXA7.5 M1 PO (05:11)
[2021-06-07] MEDS ORDERED: ACETAZOLAMIDE250 MG PO (05:11)
[2021-06-07] MEDS ORDERED: BREZTRI AEROS10.7 GM INH (05:12)
[2021-06-07 06:20] LABS: PLATELET SUFFICIENCY NORMAL (NORMAL); TOTAL CELLS COUNTED 100 #CELLS
[2021-06-07 06:21] LABS: MANUAL DIFF REFLEX YES
[2021-06-07 07:43] LABS: ABG BASE EXCESS -2.7 mmol/L (-2.0-2.0); ARTERIAL BLOOD GAS PO2 90.5 (80-90)
[2021-06-07 07:47] LABS: ARTERIAL BLOOD GAS PH 7.172 (7.35-7.45)
[2021-06-07 10:20] LABS: ABG BASE EXCESS -4.6 mmol/L (-2.0-2.0); ARTERIAL BLOOD GAS PO2 102.5 (80-90)
[2021-06-07 10:22] LABS: ARTERIAL BLOOD GAS PH 7.157 (7.35-7.45)
[2021-06-07 13:03] LABS: ABG BASE EXCESS -2.1 mmol/L (-2.0-2.0); ARTERIAL BLOOD GAS PH 7.223 (7.35-7.45); ARTERIAL BLOOD GAS PO2 63.6 (80-90)
[2021-06-07 15:15] LABS: CREATININE 1.76 mg/dL (0.55-1.02); POTASSIUM 5.3 mmol/L (3.5-5.1)
[2021-06-08] VITALS (9 sets, daily range): BP systolic 92–133; BP diastolic 42–79
[2021-06-08 05:15] LABS: POTASSIUM 4.9 mmol/L (3.5-5.1)
[2021-06-08 05:18] LABS: CREATININE 1.31 mg/dL (0.55-1.02); TOTAL PROTEIN 6.8 gm/dL (6.4-8.2)
[2021-06-08 05:24] LABS: FREE T4 0.77 ng/dl (0.76-1.46); THYROID STIM HORMONE (HS) 0.501 uIU/ml (0.358-4.75)
[2021-06-08 06:25] LABS: MEAN CORPUSCULAR HGB 23.1 pg (27.0-31.0); MEAN CORPUSCULAR HGB CONC 28.1 g/dl (33.0-37.0); MEAN PLATELET VOLUME 9.8 fl (9.6-12.3); NUCLEATED RED BLOOD CELL 0.1 10*3/uL (0.0-0.0); NUCLEATED RED BLOOD CELL 0.4 % (0.0-0.0); PLATELET COUNT AUTOMATED 290 10*3/uL (130-400); RED BLOOD COUNT 6.46 10*6/uL (4.10-5.10); RED CELL DISTRI WIDTH 22.1 % (0-14.5); WHITE BLOOD COUNT 13.7 10*3/uL (4.8-10.8)
[2021-06-08 06:28] LABS: MANUAL DIFF REFLEX YES
[2021-06-08 07:17] LABS: TOTAL CELLS COUNTED 100 #CELLS
[2021-06-08 07:18] LABS: PLATELET SUFFICIENCY NORMAL (NORMAL); POLYCHROMASIA SLIGHT
[2021-06-08 07:38] LABS: ABG BASE EXCESS 2.3 mmol/L (-2.0-2.0); ARTERIAL BLOOD GAS PH 7.323 (7.35-7.45); ARTERIAL BLOOD GAS PO2 99.8 (80-90)
[2021-06-09] VITALS (13 sets, daily range): BP systolic 101–140; BP diastolic 45–78
[2021-06-09 05:20] LABS: CREATININE 1.23 mg/dL (0.55-1.02); POTASSIUM 4.7 mmol/L (3.5-5.1); TOTAL PROTEIN 6.6 gm/dL (6.4-8.2)
[2021-06-09 06:07] LABS: HEMATOCRIT 52.2 % (37.0-47.0); MEAN CELL VOLUME 80.8 fl (81.0-99.0); MEAN CORPUSCULAR HGB 22.4 pg (27.0-31.0); MEAN CORPUSCULAR HGB CONC 27.8 g/dl (33.0-37.0); MEAN PLATELET VOLUME 9.7 fl (9.6-12.3); NUCLEATED RED BLOOD CELL 0.1 % (0.0-0.0); PLATELET COUNT AUTOMATED 307 10*3/uL (130-400); RED BLOOD COUNT 6.46 10*6/uL (4.10-5.10); WHITE BLOOD COUNT 16.9 10*3/uL (4.8-10.8)
[2021-06-09 06:18] LABS: MANUAL DIFF REFLEX YES
[2021-06-09 06:51] LABS: PLATELET SUFFICIENCY NORMAL (NORMAL); TOTAL CELLS COUNTED 100 #CELLS
[2021-06-09 06:52] LABS: MICROCYTOSIS SLIGHT; POLYCHROMASIA SLIGHT; STOMATOCYTE FEW
[2021-06-09 06:53] LABS: VACUOLATION OF NEUTROPHILS SLIGHT
[2021-06-10] VITALS: BP 116/72
[2021-06-10 06:18] LABS: BASO % 0.2 % (0.0-1.0); EOS % 0.1 % (1.0-4.0); HEMATOCRIT 51.2 % (37.0-47.0); LYMPH # 1.8 10*3/uL (1.3-4.4); LYMPH % 9.2 % (27.0-41.0); MEAN CELL VOLUME 80.8 fl (81.0-99.0); MEAN CORPUSCULAR HGB CONC 28.5 g/dl (33.0-37.0); MEAN PLATELET VOLUME 9.4 fl (9.6-12.3); MONO # 1.2 10*3/uL (0.1-1.0); MONO % 6.2 % (3.0-9.0); NEUT # 16.4 10*3/uL (2.3-7.9); NEUT % 83.4 % (47.0-73.0); PLATELET COUNT AUTOMATED 341 10*3/uL (130-400); RED BLOOD COUNT 6.34 10*6/uL (4.10-5.10); WHITE BLOOD COUNT 19.6 10*3/uL (4.8-10.8)
[2021-06-10 06:35] LABS: ALKALINE PHOSPHATASE 83 U/L (45-117); CHLORIDE 100 mmol/L (98-107); CREATININE 0.91 mg/dL (0.55-1.02); POTASSIUM 4.2 mmol/L (3.5-5.1); SGOT/AST 6 IU/L (3-35); SGPT/ALT 22 U/L (12-78); SODIUM 138 mmol/L (136-145); TOTAL PROTEIN 6.6 gm/dL (6.4-8.2)
[2021-06-10 06:36] LABS: BUN 41 mg/dl (7-24)
[2021-06-10 08:00] VITALS: BP 137/64
[2021-06-10 12:00] VITALS: BP 131/61
[2021-06-10 15:53] LABS: ABG BASE EXCESS 3.4 mmol/L (-2.0-2.0); ARTERIAL BLOOD GAS PH 7.327 (7.35-7.45); ARTERIAL BLOOD GAS PO2 80.4 (80-90)
[2021-06-10 16:00] VITALS: BP 129/66
[2021-06-10 20:00] VITALS: BP 125/66
[2021-06-11] VITALS: BP 126/71
[2021-06-11 06:05] LABS: ALKALINE PHOSPHATASE 86 U/L (45-117); CHLORIDE 101 mmol/L (98-107); CREATININE 0.93 mg/dL (0.55-1.02); POTASSIUM 4.3 mmol/L (3.5-5.1); SGOT/AST 8 IU/L (3-35); SGPT/ALT 27 U/L (12-78); SODIUM 139 mmol/L (136-145)
[2021-06-11 06:16] LABS: BUN 29 mg/dl (7-24)
[2021-06-11 06:38] LABS: BASO % 0.1 % (0.0-1.0); HEMATOCRIT 48.5 % (37.0-47.0); LYMPH # 1.3 10*3/uL (1.3-4.4); LYMPH % 8.3 % (27.0-41.0); MEAN CELL VOLUME 82.6 fl (81.0-99.0); MEAN CORPUSCULAR HGB 22.8 pg (27.0-31.0); MEAN CORPUSCULAR HGB CONC 27.6 g/dl (33.0-37.0); MEAN PLATELET VOLUME 9.6 fl (9.6-12.3); MONO # 0.9 10*3/uL (0.1-1.0); MONO % 5.5 % (3.0-9.0); NEUT # 13.2 10*3/uL (2.3-7.9); NEUT % 85.4 % (47.0-73.0); PLATELET COUNT AUTOMATED 295 10*3/uL (130-400); RED BLOOD COUNT 5.87 10*6/uL (4.10-5.10); RED CELL DISTRI WIDTH 21.4 % (0-14.5); WHITE BLOOD COUNT 15.4 10*3/uL (4.8-10.8)
[2021-06-11 08:00] VITALS: BP 144/66
[2021-06-11 12:00] VITALS: BP 136/63
[2021-06-11 16:00] VITALS: BP 141/67
[2021-06-11 20:00] VITALS: BP 130/56
[2021-06-12] VITALS: BP 111/83
[2021-06-12 06:12] LABS: BASO % 0.2 % (0.0-1.0); EOS % 0.1 % (1.0-4.0); HEMATOCRIT 48.8 % (37.0-47.0); LYMPH # 1.9 10*3/uL (1.3-4.4); LYMPH % 10.2 % (27.0-41.0); MEAN CORPUSCULAR HGB 23.4 pg (27.0-31.0); MEAN CORPUSCULAR HGB CONC 28.5 g/dl (33.0-37.0); MEAN PLATELET VOLUME 9.2 fl (9.6-12.3); MONO % 5.5 % (3.0-9.0); NEUT # 15.4 10*3/uL (2.3-7.9); NEUT % 83.3 % (47.0-73.0); PLATELET COUNT AUTOMATED 264 10*3/uL (130-400); RED BLOOD COUNT 5.95 10*6/uL (4.10-5.10); RED CELL DISTRI WIDTH 21.3 % (0-14.5); WHITE BLOOD COUNT 18.5 10*3/uL (4.8-10.8)
[2021-06-12 06:22] LABS: BUN 20 mg/dl (7-24); CHLORIDE 99 mmol/L (98-107); CREATININE 0.85 mg/dL (0.55-1.02); POTASSIUM 3.9 mmol/L (3.5-5.1); SODIUM 138 mmol/L (136-145)
[2021-06-12 08:00] VITALS: BP 154/68
[2021-06-12] MEDS ORDERED: PREDNISONE10 MG PO (10:44)
[2021-06-12] MEDS ORDERED: LEVOFLOXACIN750 M2 PO (10:44)
[2021-06-12] MEDS ORDERED: NATURE'S BLEND F1 MG PO (10:44)
== END 2021-06-12 12:00 | disposition home or self-care (01) | DRG 720 ==
LOC: ED 22:18 → EDHOLD 06-07 00:27 → ICCU 06-07 00:27 → 5E 06-09 15:11
PROVIDERS: Emergency Medicine; Family Medicine; Internal Medicine; ADMIT Internal Medicine; ATTEND Internal Medicine
PROC: 5A0935A Assistance with Respiratory Ventilation, Less than 24 Consecutive Hours, High Flow/Velocity Cannula (ICD-10-PCS; principal; 2021-06-06)
PROC: 5A09457 Assistance with Respiratory Ventilation, 24-96 Consecutive Hours, Continuous Positive Airway Pressure (ICD-10-PCS; 2021-06-06)
PROC: 5A0935A Assistance with Respiratory Ventilation, Less than 24 Consecutive Hours, High Flow/Velocity Cannula (ICD-10-PCS; 2021-06-09)
PROC: 5A09357 Assistance with Respiratory Ventilation, Less than 24 Consecutive Hours, Continuous Positive Airway Pressure (ICD-10-PCS; 2021-06-10)
PROC: 5A0935A Assistance with Respiratory Ventilation, Less than 24 Consecutive Hours, High Flow/Velocity Cannula (ICD-10-PCS; 2021-06-10)
PROC: 5A09357 Assistance with Respiratory Ventilation, Less than 24 Consecutive Hours, Continuous Positive Airway Pressure (ICD-10-PCS; 2021-06-11)
PROC: 5A0935A Assistance with Respiratory Ventilation, Less than 24 Consecutive Hours, High Flow/Velocity Cannula (ICD-10-PCS; 2021-06-11)
DX: A41.9 Sepsis, unspecified organism (principal); J96.01 Acute respiratory failure with hypoxia; J96.02 Acute respiratory failure with hypercapnia; N17.0 Acute kidney failure with tubular necrosis; I26.99 Other pulmonary embolism without acute cor pulmonale; I50.33 Acute on chronic diastolic (congestive) heart failure; G93.41 Metabolic encephalopathy; E87.1 Hypo-osmolality and hyponatremia; J44.1 Chronic obstructive pulmonary disease with (acute) exacerbation; J06.9 Acute upper respiratory infection, unspecified; F17.200 Nicotine dependence, unspecified, uncomplicated; G89.29 Other chronic pain; M25.569 Pain in unspecified knee; M54.9 Dorsalgia, unspecified; R79.89 Other specified abnormal findings of blood chemistry; E11.65 Type 2 diabetes mellitus with hyperglycemia; E87.5 Hyperkalemia; E03.9 Hypothyroidism, unspecified; R65.20 Severe sepsis without septic shock; J18.9 Pneumonia, unspecified organism; G47.33 Obstructive sleep apnea (adult) (pediatric); G43.909 Migraine, unspecified, not intractable, without status migrainosus; K21.9 Gastro-esophageal reflux disease without esophagitis; I11.0 Hypertensive heart disease with heart failure; E53.8 Deficiency of other specified B group vitamins; E66.01 Morbid (severe) obesity due to excess calories; Z88.0 Allergy status to penicillin; Z79.82 Long term (current) use of aspirin; Z86.16 Personal history of COVID-19; Z98.891 History of uterine scar from previous surgery; Z88.8 Allergy status to other drugs, medicaments and biological substances; Z90.49 Acquired absence of other specified parts of digestive tract; Z82.49 Family history of ischemic heart disease and other diseases of the circulatory system; Z80.0 Family history of malignant neoplasm of digestive organs; Z99.81 Dependence on supplemental oxygen; Z79.899 Other long term (current) drug therapy; Z68.41 Body mass index [BMI] 40.0-44.9, adult

== ENCOUNTER 2021-06-19 17:26 | Emergency (ER) | payer OTHER ==
[~2021-06-19] VITALS: Ht 162.5 cm; Wt 90.7 kg
[~2021-06-19 17:26] MED LIST changes: +ACETAZOLAMIDE250 MG PO; +BREZTRI AEROS10.7 GM INH; +ENTRESTO 97 MG1 EACH PO; +GLIPIZIDE2.5 MG PO; +LEVOFLOXACIN750 M2 PO; +NATURE'S BLEND F1 MG PO; +PREDNISONE10 MG PO; +THEO-24200 MG PO; +VICO75300 PO; +ZYPREXA7.5 M1 PO
[2021-06-19 17:32] VITALS: BP 125/70
[2021-06-19 18:18] LABS: BASO # 0.1 10*3/uL (0.0-0.1); BASO % 0.3 % (0.0-1.0); EOS # 0.2 10*3/uL (0.0-0.4); EOS % 0.8 % (1.0-4.0); HEMATOCRIT 46.7 % (37.0-47.0); LYMPH # 2.2 10*3/uL (1.3-4.4); LYMPH % 11.8 % (27.0-41.0); MEAN CELL VOLUME 82.2 fl (81.0-99.0); MEAN CORPUSCULAR HGB 23.1 pg (27.0-31.0); MEAN CORPUSCULAR HGB CONC 28.1 g/dl (33.0-37.0); MEAN PLATELET VOLUME 9.6 fl (9.6-12.3); MONO # 0.9 10*3/uL (0.1-1.0); MONO % 4.9 % (3.0-9.0); NEUT # 15.3 10*3/uL (2.3-7.9); NEUT % 81.2 % (47.0-73.0); NUCLEATED RED BLOOD CELL 0.2 % (0.0-0.0); PLATELET COUNT AUTOMATED 190 10*3/uL (130-400); RED BLOOD COUNT 5.68 10*6/uL (4.10-5.10); RED CELL DISTRI WIDTH 23.9 % (0-14.5); WHITE BLOOD COUNT 18.9 10*3/uL (4.8-10.8)
[2021-06-19 18:38] LABS: ALKALINE PHOSPHATASE 90 U/L (45-117); BUN 18 mg/dl (7-24); CHLORIDE 107 mmol/L (98-107); CREATININE 1.04 mg/dL (0.55-1.02); POTASSIUM 4.2 mmol/L (3.5-5.1); SGOT/AST 15 IU/L (3-35); SGPT/ALT 30 U/L (12-78); SODIUM 141 mmol/L (136-145); TOTAL PROTEIN 5.9 gm/dL (6.4-8.2)
[2021-06-19 19:23] LABS: ABG BASE EXCESS 3.4 mmol/L (-2.0-2.0); ARTERIAL BLOOD GAS PH 7.34 (7.35-7.45); ARTERIAL BLOOD GAS PO2 59.6 (80-90)
[2021-06-19] MEDS ORDERED: VIBRAMYCIN100 MG PO (21:40)
[2021-06-19] MEDS ORDERED: ATIVAN0.5 MG PO (21:41)
== END 2021-06-19 21:51 | disposition home or self-care (01) ==
LOC: ED 17:26
PROVIDERS: Physician Assistant
DX: J44.1 Chronic obstructive pulmonary disease with (acute) exacerbation (principal); F41.9 Anxiety disorder, unspecified; Z88.0 Allergy status to penicillin; Z88.8 Allergy status to other drugs, medicaments and biological substances; Z79.899 Other long term (current) drug therapy; Z98.890 Other specified postprocedural states; Z90.49 Acquired absence of other specified parts of digestive tract; Z87.891 Personal history of nicotine dependence

== ENCOUNTER 2021-07-13 20:40 | Emergency (ER) | payer OTHER ==
[~2021-07-13] VITALS: Wt 112.5 kg
[~2021-07-13 20:40] MED LIST changes: +ATIVAN0.5 MG PO
[2021-07-13 20:57] LABS: BASO # 0.1 10*3/uL (0.0-0.1); BASO % 0.4 % (0.0-1.0); EOS % 0.2 % (1.0-4.0); HEMATOCRIT 42.7 % (37.0-47.0); LYMPH # 2.2 10*3/uL (1.3-4.4); LYMPH % 11.9 % (27.0-41.0); MEAN CELL VOLUME 86.8 fl (81.0-99.0); MEAN CORPUSCULAR HGB CONC 28.8 g/dl (33.0-37.0); MEAN PLATELET VOLUME 8.7 fl (9.6-12.3); MONO # 1.1 10*3/uL (0.1-1.0); MONO % 6.2 % (3.0-9.0); NEUT # 14.6 10*3/uL (2.3-7.9); NEUT % 80.5 % (47.0-73.0); PLATELET COUNT AUTOMATED 339 10*3/uL (130-400); RED BLOOD COUNT 4.92 10*6/uL (4.10-5.10); RED CELL DISTRI WIDTH 23.9 % (0-14.5); WHITE BLOOD COUNT 18.1 10*3/uL (4.8-10.8)
[2021-07-13 21:14] LABS: CREATININE 4.38 mg/dL (0.55-1.02); POTASSIUM 4.7 mmol/L (3.5-5.1); TOTAL PROTEIN 6.4 gm/dL (6.4-8.2)
[2021-07-13] MEDS ORDERED: PROTONIX40 MG PO (21:43)
[2021-07-13 23:23] LABS: ARTERIAL BLOOD GAS PO2 71.7 (80-90)
[2021-07-13 23:24] LABS: ARTERIAL BLOOD GAS PH 7.141 (7.35-7.45)
[2021-07-14 01:18] LABS: BILIRUBIN 2+ (Negative); BLOOD Negative (Negative); CLARITY Cloudy (Clear); COLOR Dark Yellow (Yellow); GLUCOSE Negative (Negative); KETONE Trace (Negative); LEUKO ESTERASE 2+ (Negative); NITRITE Negative (Negative); SPECIFIC GRAVITY >= 1.030 (1.001-1.030)
[2021-07-14 01:35] LABS: BACTERIA 3+; WBC 16-20 wbc/hpf (0-5)
[2021-07-14 02:52] LABS: CREATININE 4.46 mg/dL (0.55-1.02); POTASSIUM 5.9 mmol/L (3.5-5.1)
[2021-07-14 03:43] LABS: ARTERIAL BLOOD GAS PO2 57.8 (80-90)
[2021-07-14 03:45] LABS: ABG BASE EXCESS -10.3 mmol/L (-2.0-2.0); ARTERIAL BLOOD GAS PH 7.137 (7.35-7.45)
[2021-07-14 06:15] LABS: HEMATOCRIT 46.9 % (37.0-47.0); MEAN CELL VOLUME 86.2 fl (81.0-99.0); MEAN CORPUSCULAR HGB 24.6 pg (27.0-31.0); MEAN CORPUSCULAR HGB CONC 28.6 g/dl (33.0-37.0); MEAN PLATELET VOLUME 9.1 fl (9.6-12.3); NUCLEATED RED BLOOD CELL 0.1 % (0.0-0.0); PLATELET COUNT AUTOMATED 402 10*3/uL (130-400); RED BLOOD COUNT 5.44 10*6/uL (4.10-5.10); RED CELL DISTRI WIDTH 23.8 % (0-14.5); WHITE BLOOD COUNT 20.8 10*3/uL (4.8-10.8)
[2021-07-14 06:17] LABS: MANUAL DIFF REFLEX YES
[2021-07-14 06:29] LABS: CREATININE 3.6 mg/dL (0.55-1.02)
[2021-07-14 06:32] LABS: POTASSIUM 6.6 mmol/L (3.5-5.1)
[2021-07-14 06:52] LABS: PLATELET SUFFICIENCY HIGH (NORMAL); TOTAL CELLS COUNTED 100 #CELLS
[2021-07-14 09:11] VITALS: BP 122/68
== END 2021-07-14 10:43 | disposition short-term general hospital (02) ==
LOC: ED 20:40
PROVIDERS: Emergency Medicine
DX: A41.9 Sepsis, unspecified organism (principal); Z20.822 Contact with and (suspected) exposure to COVID-19; J44.9 Chronic obstructive pulmonary disease, unspecified; N17.9 Acute kidney failure, unspecified; N39.0 Urinary tract infection, site not specified; I21.4 Non-ST elevation (NSTEMI) myocardial infarction; E87.5 Hyperkalemia; R65.21 Severe sepsis with septic shock

== ENCOUNTER 2021-09-09 21:17 | Emergency (ER) | payer OTHER ==
[~2021-09-09] VITALS: Ht 162.5 cm; Wt 112.0 kg
[2021-09-09 21:31] VITALS: BP 136/78
[2021-09-09] MEDS ORDERED: CLINDAMYCIN HC300 MG PO (23:21)
== END 2021-09-09 23:58 | disposition home or self-care (01) ==
LOC: ED 21:17
DX: K04.7 Periapical abscess without sinus (principal); J44.9 Chronic obstructive pulmonary disease, unspecified; I10 Essential (primary) hypertension; G43.909 Migraine, unspecified, not intractable, without status migrainosus; E11.9 Type 2 diabetes mellitus without complications; E03.9 Hypothyroidism, unspecified; Z88.0 Allergy status to penicillin; Z88.8 Allergy status to other drugs, medicaments and biological substances; Z79.899 Other long term (current) drug therapy; E78.5 Hyperlipidemia, unspecified; Z90.49 Acquired absence of other specified parts of digestive tract; Z98.890 Other specified postprocedural states; Z87.891 Personal history of nicotine dependence

== ENCOUNTER 2022-03-18 16:24 | Emergency (ER) | payer OTHER ==
[~2022-03-18] VITALS: Wt 117.5 kg
[~2022-03-18 16:24] MED LIST changes: +CLINDAMYCIN HC300 MG PO
[2022-03-18 16:34] VITALS: BP 158/78
[2022-03-18 17:23] LABS: BASO # 0.1 10*3/uL (0.0-0.1); BASO % 0.6 % (0.0-1.0); EOS # 0.1 10*3/uL (0.0-0.4); EOS % 1.1 % (1.0-4.0); HEMATOCRIT 38.3 % (37.0-47.0); LYMPH % 21.2 % (27.0-41.0); MEAN CELL VOLUME 89.1 fl (81.0-99.0); MEAN CORPUSCULAR HGB CONC 30.3 g/dl (33.0-37.0); MEAN PLATELET VOLUME 9.7 fl (9.6-12.3); MONO # 0.8 10*3/uL (0.1-1.0); NEUT # 6.3 10*3/uL (2.3-7.9); NEUT % 67.3 % (47.0-73.0); NUCLEATED RED BLOOD CELL 0.3 % (0.0-0.0); PLATELET COUNT AUTOMATED 317 10*3/uL (130-400); RED CELL DISTRI WIDTH 18.6 % (0-14.5); WHITE BLOOD COUNT 9.3 10*3/uL (4.8-10.8)
[2022-03-18 18:43] LABS: ALKALINE PHOSPHATASE 93 U/L (46-116); BUN 18 mg/dl (9-23); CHLORIDE 99 mmol/L (98-107); POTASSIUM 3.7 mmol/L (3.4-5.1); SGPT/ALT 27 U/L (10-49); TOTAL PROTEIN 6.9 gm/dL (6.0-8.0)
== END 2022-03-18 20:15 | disposition left against medical advice (07) ==
LOC: ED 16:24
PROVIDERS: Physician Assistant
DX: R06.02 Shortness of breath (principal); Z88.0 Allergy status to penicillin; Z88.5 Allergy status to narcotic agent; Z91.041 Radiographic dye allergy status; Z90.49 Acquired absence of other specified parts of digestive tract; Z90.89 Acquired absence of other organs; Z98.890 Other specified postprocedural states; Z87.891 Personal history of nicotine dependence

== ENCOUNTER → 2022-12-10 | Outpatient (CLI) | payer OTHER ==
[~2022-12-10] MED LIST changes: +ACETYLCYST200 MG/1 M INH; +AIRDUO DIGIHAL1 EACH NAS; +AZELASTINE HYDRO6 M1 OP; +BUSPAR5 MG PO; +CYMBALTA30 MG PO; +EASY COMFORT P MC; +FLOVENT HFA12 G1 INH; +HUMALOG100 UNIT/2 SC; +Ipratropium Brom3 ML INH; +LANTUS SOL100 UNIT/1 SC; +METFORMIN HYDR500 MG PO; +NITROSTAT0.4 MG SL; +PERCOCET 5-3251 EACH PO; +PREDNISONE20 M1 PO; -RANEXA500 M1 PO; +RANOLAZINE ER500 MG PO; +THEO-24400 MG PO; +TRULICITY0.75 MG/0. SC; +VITAMIN D210 MCG PO; +ZANAFLEX2 M1 PO
[2022-12-10 16:20] LABS: POTASSIUM 5.1 mmol/L (3.4-5.1)
== END | disposition home or self-care (01) ==
LOC: LAB 15:44
PROVIDERS: ATTEND Internal Medicine
DX: N17.9 Acute kidney failure, unspecified (principal)

== ENCOUNTER → 2022-12-25 | Outpatient (CLI) | payer OTHER ==
[2022-12-25 10:53] LABS: HEMATOCRIT 35.2 % (37.0-47.0)
[2022-12-25 11:02] LABS: URINE CREATININE RANDOM 50.42 mg/dL
[2022-12-25 11:26] LABS: VITAMIN D, 25-HYDROXY 34.8 ng/mL (30-100)
== END | disposition home or self-care (01) ==
LOC: LAB 10:10
PROVIDERS: ATTEND Internal Medicine
DX: I12.9 Hypertensive chronic kidney disease with stage 1 through stage 4 chronic kidney disease, or unspecified chronic kidney disease (principal); N18.9 Chronic kidney disease, unspecified; E55.9 Vitamin D deficiency, unspecified; N25.81 Secondary hyperparathyroidism of renal origin; D63.1 Anemia in chronic kidney disease; D64.9 Anemia, unspecified

== ENCOUNTER 2023-03-11 13:38 | Inpatient (IN) | payer OTHER ==
[2023-03-11] VITALS (11 sets, daily range): BP systolic 78–120; BP diastolic 37–56
[~2023-03-11] VITALS: Ht 165.1 cm; Wt 113.0 kg
[2023-03-11 14:05] LABS: ABG BASE EXCESS -0.3 mmol/L (-2.0-2.0); ARTERIAL BLOOD GAS PH 7.285 (7.35-7.45)
[2023-03-11 14:34] LABS: POTASSIUM 4.6 mmol/L (3.4-5.1); TOTAL PROTEIN 5.9 gm/dL (6.0-8.0)
[2023-03-11 15:33] LABS: HEMATOCRIT 34.6 % (37.0-47.0); MEAN CELL VOLUME 76.4 fl (81.0-99.0); MEAN CORPUSCULAR HGB 19.4 pg (27.0-31.0); MEAN CORPUSCULAR HGB CONC 25.4 g/dl (33.0-37.0); MEAN PLATELET VOLUME 8.5 fl (9.6-12.3); NUCLEATED RED BLOOD CELL 0.2 10*3/uL (0.0-0.0); NUCLEATED RED BLOOD CELL 0.7 % (0.0-0.0); PLATELET COUNT AUTOMATED 265 10*3/uL (130-400); RED BLOOD COUNT 4.53 10*6/uL (4.10-5.10); RED CELL DISTRI WIDTH 21.2 % (0-14.5)
[2023-03-11 15:35] LABS: MANUAL DIFF REFLEX YES
[2023-03-11 15:48] LABS: BILIRUBIN 1+ (Negative); BLOOD Negative (Negative); CLARITY Cloudy (Clear); COLOR Dark Yellow (Yellow); GLUCOSE 3+ (Negative); KETONE Trace (Negative); LEUKO ESTERASE 1+ (Negative); NITRITE Positive (Negative); SPECIFIC GRAVITY >= 1.030 (1.001-1.030)
[2023-03-11 15:55] LABS: OVALOCYTES FEW; PLATELET SUFFICIENCY NORMAL (NORMAL); TOTAL CELLS COUNTED 100 #CELLS
[2023-03-11 15:56] LABS: POLYCHROMASIA SLIGHT
[2023-03-11 16:00] LABS: BACTERIA 3+; EPITHELIAL CELLS 0-2; WBC 21-30 wbc/hpf (0-5)
[2023-03-12] VITALS (58 sets, daily range): BP systolic 71–154; BP diastolic 30–78
[2023-03-12 00:31] LABS: ARTERIAL BLOOD GAS PH 7.265 (7.35-7.45)
[2023-03-12 06:25] LABS: ACT PARTIAL THROMBO TIME 31.6 SECONDS (20.0-32.1)
[2023-03-12 06:33] LABS: MEAN CELL VOLUME 77.3 fl (81.0-99.0); MEAN CORPUSCULAR HGB 19.1 pg (27.0-31.0); MEAN CORPUSCULAR HGB CONC 24.7 g/dl (33.0-37.0); MEAN PLATELET VOLUME 8.9 fl (9.6-12.3); NUCLEATED RED BLOOD CELL 0.1 10*3/uL (0.0-0.0); NUCLEATED RED BLOOD CELL 0.3 % (0.0-0.0); PLATELET COUNT AUTOMATED 307 10*3/uL (130-400); RED BLOOD COUNT 4.66 10*6/uL (4.10-5.10); RED CELL DISTRI WIDTH 21.2 % (0-14.5); WHITE BLOOD COUNT 29.9 10*3/uL (4.8-10.8)
[2023-03-12 06:39] LABS: MANUAL DIFF REFLEX YES
[2023-03-12 06:54] LABS: ALKALINE PHOSPHATASE 86 U/L (46-116); BUN 20 mg/dl (9-23); CHLORIDE 101 mmol/L (98-107); CHOLESTEROL 112 mg/dL (<200); FREE T4 0.86 ng/dl (0.89-1.76); LDL CHOLESTEROL 41 mg/dL (9-159); POTASSIUM 3.9 mmol/L (3.4-5.1); SGPT/ALT 31 U/L (5-49); TOTAL PROTEIN 6.1 gm/dL (6.0-8.0); TRIGLYCERIDES 169 mg/dl (<150)
[2023-03-12 07:04] LABS: TOTAL CELLS COUNTED 100 #CELLS
[2023-03-12 07:06] LABS: BURR CELLS FEW; MICROCYTOSIS SLIGHT; OVALOCYTES FEW; PLATELET SUFFICIENCY NORMAL (NORMAL); POLYCHROMASIA SLIGHT; SCHISTOCYTES FEW
[2023-03-12 08:37] LABS: ABG BASE EXCESS 2.1 mmol/L (-2.0-2.0); ARTERIAL BLOOD GAS PH 7.325 (7.35-7.45)
[2023-03-12 16:34] LABS: HEMATOCRIT 30.5 % (37.0-47.0); MEAN CORPUSCULAR HGB 19.4 pg (27.0-31.0); MEAN CORPUSCULAR HGB CONC 24.9 g/dl (33.0-37.0); MEAN PLATELET VOLUME 9.1 fl (9.6-12.3); NUCLEATED RED BLOOD CELL 0.1 10*3/uL (0.0-0.0); NUCLEATED RED BLOOD CELL 0.3 % (0.0-0.0); PLATELET COUNT AUTOMATED 274 10*3/uL (130-400); RED BLOOD COUNT 3.91 10*6/uL (4.10-5.10); WHITE BLOOD COUNT 24.5 10*3/uL (4.8-10.8)
[2023-03-12 16:37] LABS: MANUAL DIFF REFLEX YES
[2023-03-12 16:58] LABS: POTASSIUM 4.2 mmol/L (3.4-5.1); TOTAL PROTEIN 5.9 gm/dL (6.0-8.0)
[2023-03-12 17:22] LABS: BASOPHILS 1 % (0-1); TOTAL CELLS COUNTED 100 #CELLS
[2023-03-12 17:23] LABS: PLATELET SUFFICIENCY NORMAL (NORMAL); POLYCHROMASIA SLIGHT; STOMATOCYTE FEW; TARGET CELLS FEW
[2023-03-12 20:19] LABS: ABG BASE EXCESS -2.9 mmol/L (-2.0-2.0); ARTERIAL BLOOD GAS PH 7.25 (7.35-7.45)
[2023-03-13] VITALS (80 sets, daily range): BP systolic 75–163; BP diastolic 27–81
[2023-03-13 06:01] LABS: HEMATOCRIT 33.3 % (37.0-47.0); MEAN CELL VOLUME 77.4 fl (81.0-99.0); MEAN CORPUSCULAR HGB 19.3 pg (27.0-31.0); MEAN CORPUSCULAR HGB CONC 24.9 g/dl (33.0-37.0); MEAN PLATELET VOLUME 9.1 fl (9.6-12.3); NUCLEATED RED BLOOD CELL 0.1 10*3/uL (0.0-0.0); NUCLEATED RED BLOOD CELL 0.3 % (0.0-0.0); PLATELET COUNT AUTOMATED 295 10*3/uL (130-400); RED CELL DISTRI WIDTH 21.3 % (0-14.5); WHITE BLOOD COUNT 25.8 10*3/uL (4.8-10.8)
[2023-03-13 06:03] LABS: ALKALINE PHOSPHATASE 109 U/L (46-116); BUN 27 mg/dl (9-23); CHLORIDE 100 mmol/L (98-107); POTASSIUM 4.1 mmol/L (3.4-5.1); SGPT/ALT 23 U/L (5-49); TOTAL PROTEIN 6.4 gm/dL (6.0-8.0)
[2023-03-13 06:11] LABS: MANUAL DIFF REFLEX YES
[2023-03-13 06:49] LABS: MICROCYTOSIS MODERATE; PLATELET SUFFICIENCY NORMAL (NORMAL); TOTAL CELLS COUNTED 100 #CELLS
[2023-03-13 07:46] LABS: ABG BASE EXCESS -2.3 mmol/L (-2.0-2.0)
[2023-03-13 07:48] LABS: ARTERIAL BLOOD GAS PH 7.176 (7.35-7.45)
[2023-03-13 11:54] LABS: ABG BASE EXCESS -1.7 mmol/L (-2.0-2.0); ARTERIAL BLOOD GAS PH 7.237 (7.35-7.45)
[2023-03-14] VITALS (69 sets, daily range): BP systolic 87–160; BP diastolic 22–82
[2023-03-14 06:18] LABS: HEMATOCRIT 32.7 % (37.0-47.0); MEAN CELL VOLUME 77.5 fl (81.0-99.0); MEAN CORPUSCULAR HGB 19.2 pg (27.0-31.0); MEAN CORPUSCULAR HGB CONC 24.8 g/dl (33.0-37.0); MEAN PLATELET VOLUME 9.1 fl (9.6-12.3); NUCLEATED RED BLOOD CELL 0.2 10*3/uL (0.0-0.0); NUCLEATED RED BLOOD CELL 0.9 % (0.0-0.0); PLATELET COUNT AUTOMATED 288 10*3/uL (130-400); RED BLOOD COUNT 4.22 10*6/uL (4.10-5.10); RED CELL DISTRI WIDTH 21.1 % (0-14.5); WHITE BLOOD COUNT 18.2 10*3/uL (4.8-10.8)
[2023-03-14 06:37] LABS: MANUAL DIFF REFLEX YES
[2023-03-14 06:47] LABS: POTASSIUM 3.8 mmol/L (3.4-5.1)
[2023-03-14 07:29] LABS: MICROCYTOSIS SLIGHT; PLATELET SUFFICIENCY NORMAL (NORMAL); TOTAL CELLS COUNTED 100 #CELLS
[2023-03-14 07:30] LABS: POLYCHROMASIA MODERATE; TARGET CELLS FEW
[2023-03-14 07:47] LABS: ABG BASE EXCESS -2.4 mmol/L (-2.0-2.0); ARTERIAL BLOOD GAS PH 7.236 (7.35-7.45)
[2023-03-14 13:57] LABS: ABG BASE EXCESS 0.2 mmol/L (-2.0-2.0); ARTERIAL BLOOD GAS PH 7.254 (7.35-7.45)
[2023-03-14 17:21] LABS: ABG BASE EXCESS 3.1 mmol/L (-2.0-2.0); ARTERIAL BLOOD GAS PH 7.314 (7.35-7.45)
[2023-03-15] VITALS (9 sets, daily range): BP systolic 124–158; BP diastolic 65–78
[2023-03-15 06:15] LABS: BASO % 0.2 % (0.0-1.0); EOS % 0.2 % (1.0-4.0); HEMATOCRIT 31.2 % (37.0-47.0); LYMPH # 0.8 10*3/uL (1.3-4.4); LYMPH % 7.5 % (27.0-41.0); MEAN CORPUSCULAR HGB 19.5 pg (27.0-31.0); MONO # 0.5 10*3/uL (0.1-1.0); MONO % 4.7 % (3.0-9.0); NEUT # 8.9 10*3/uL (2.3-7.9); NEUT % 84.8 % (47.0-73.0); NUCLEATED RED BLOOD CELL 0.1 10*3/uL (0.0-0.0); NUCLEATED RED BLOOD CELL 0.8 % (0.0-0.0); PLATELET COUNT AUTOMATED 250 10*3/uL (130-400); RED CELL DISTRI WIDTH 21.2 % (0-14.5); WHITE BLOOD COUNT 10.4 10*3/uL (4.8-10.8)
[2023-03-15 06:27] LABS: ALKALINE PHOSPHATASE 240 U/L (46-116); BUN 17 mg/dl (9-23); CHLORIDE 108 mmol/L (98-107); POTASSIUM 3.4 mmol/L (3.4-5.1); SGPT/ALT 23 U/L (5-49)
[2023-03-15 08:24] LABS: ABG BASE EXCESS 3.4 mmol/L (-2.0-2.0); ARTERIAL BLOOD GAS PH 7.347 (7.35-7.45)
[2023-03-15 15:15] LABS: ABG BASE EXCESS 5.5 mmol/L (-2.0-2.0); ARTERIAL BLOOD GAS PH 7.364 (7.35-7.45)
[2023-03-16] VITALS (9 sets, daily range): BP systolic 110–154; BP diastolic 57–77
[2023-03-16 02:35] LABS: BILIRUBIN Negative (Negative); BLOOD Negative (Negative); CLARITY Clear (Clear); COLOR Yellow (Yellow); GLUCOSE Negative (Negative); KETONE Trace (Negative); LEUKO ESTERASE 1+ (Negative); NITRITE Negative (Negative); PH 5.5 (4.5-8.0); SPECIFIC GRAVITY 1.025 (1.001-1.030); UROBILINOGEN 0.2 E.U./dl (0.0-1.0)
[2023-03-16 02:57] LABS: EPITHELIAL CELLS 31-40
[2023-03-16 02:58] LABS: BACTERIA 1+; WBC 41-50 wbc/hpf (0-5); YEAST 1+
[2023-03-16 05:53] LABS: ALKALINE PHOSPHATASE 192 U/L (46-116); BUN 15 mg/dl (9-23); CHLORIDE 107 mmol/L (98-107); POTASSIUM 3.2 mmol/L (3.4-5.1); SGPT/ALT 19 U/L (5-49); TOTAL PROTEIN 5.9 gm/dL (6.0-8.0)
[2023-03-16 06:27] LABS: HEMATOCRIT 31.5 % (37.0-47.0); MEAN CELL VOLUME 79.3 fl (81.0-99.0); MEAN CORPUSCULAR HGB 19.4 pg (27.0-31.0); MEAN CORPUSCULAR HGB CONC 24.4 g/dl (33.0-37.0); MEAN PLATELET VOLUME 8.9 fl (9.6-12.3); NUCLEATED RED BLOOD CELL 0.1 10*3/uL (0.0-0.0); NUCLEATED RED BLOOD CELL 1.1 % (0.0-0.0); PLATELET COUNT AUTOMATED 253 10*3/uL (130-400); RED BLOOD COUNT 3.97 10*6/uL (4.10-5.10); WHITE BLOOD COUNT 9.5 10*3/uL (4.8-10.8)
[2023-03-16 06:40] LABS: MANUAL DIFF REFLEX YES
[2023-03-16 07:26] LABS: PLATELET SUFFICIENCY NORMAL (NORMAL); POLYCHROMASIA SLIGHT; TOTAL CELLS COUNTED 100 #CELLS
[2023-03-16 07:27] LABS: OVALOCYTES FEW; TARGET CELLS FEW
[2023-03-16 08:04] LABS: ABG BASE EXCESS 7.8 mmol/L (-2.0-2.0); ARTERIAL BLOOD GAS PH 7.404 (7.35-7.45)
[2023-03-16 11:36] LABS: ABG BASE EXCESS 5.1 mmol/L (-2.0-2.0); ARTERIAL BLOOD GAS PH 7.316 (7.35-7.45)
[2023-03-17] VITALS: BP 159/66
[2023-03-17 04:00] VITALS: BP 154/67
[2023-03-17 05:41] LABS: ALKALINE PHOSPHATASE 173 U/L (46-116); BUN 16 mg/dl (9-23); CHLORIDE 104 mmol/L (98-107); POTASSIUM 2.9 mmol/L (3.4-5.1); SGPT/ALT 23 U/L (5-49); TOTAL PROTEIN 5.7 gm/dL (6.0-8.0)
[2023-03-17 06:31] LABS: HEMATOCRIT 29.9 % (37.0-47.0); MEAN CELL VOLUME 78.7 fl (81.0-99.0); MEAN CORPUSCULAR HGB 19.5 pg (27.0-31.0); MEAN CORPUSCULAR HGB CONC 24.7 g/dl (33.0-37.0); MEAN PLATELET VOLUME 9.3 fl (9.6-12.3); NUCLEATED RED BLOOD CELL 0.1 10*3/uL (0.0-0.0); NUCLEATED RED BLOOD CELL 1.1 % (0.0-0.0); PLATELET COUNT AUTOMATED 244 10*3/uL (130-400); RED CELL DISTRI WIDTH 20.8 % (0-14.5); WHITE BLOOD COUNT 10.4 10*3/uL (4.8-10.8)
[2023-03-17 06:32] LABS: MANUAL DIFF REFLEX YES
[2023-03-17 07:33] LABS: ABG BASE EXCESS 9.4 mmol/L (-2.0-2.0); ARTERIAL BLOOD GAS PH 7.422 (7.35-7.45)
[2023-03-17 07:39] LABS: MICROCYTOSIS SLIGHT; POLYCHROMASIA SLIGHT; TOTAL CELLS COUNTED 100 #CELLS; TOXIC GRANULATION SLIGHT; VACUOLATION OF NEUTROPHILS SLIGHT
[2023-03-17 07:40] LABS: PLATELET SUFFICIENCY NORMAL (NORMAL); TARGET CELLS FEW
[2023-03-17 08:00] VITALS: BP 139/67
[2023-03-17 12:00] VITALS: BP 121/62
[2023-03-17 16:00] VITALS: BP 122/61
[2023-03-17 20:00] VITALS: BP 108/52
[2023-03-18] VITALS (7 sets, daily range): BP systolic 115–152; BP diastolic 57–65
[2023-03-18 06:32] LABS: HEMATOCRIT 28.2 % (37.0-47.0); MEAN CORPUSCULAR HGB 19.7 pg (27.0-31.0); MEAN CORPUSCULAR HGB CONC 25.9 g/dl (33.0-37.0); MEAN PLATELET VOLUME 10.3 fl (9.6-12.3); NUCLEATED RED BLOOD CELL 0.1 10*3/uL (0.0-0.0); NUCLEATED RED BLOOD CELL 1.4 % (0.0-0.0); PLATELET COUNT AUTOMATED 224 10*3/uL (130-400); RED BLOOD COUNT 3.71 10*6/uL (4.10-5.10); RED CELL DISTRI WIDTH 21.4 % (0-14.5); WHITE BLOOD COUNT 7.3 10*3/uL (4.8-10.8)
[2023-03-18 06:35] LABS: MANUAL DIFF REFLEX YES
[2023-03-18 07:41] LABS: TOTAL CELLS COUNTED 100 #CELLS
[2023-03-18 07:42] LABS: MICROCYTOSIS SLIGHT; OVALOCYTES FEW; PLATELET SUFFICIENCY NORMAL (NORMAL); POLYCHROMASIA SLIGHT; ROULEAUX SLIGHT
[2023-03-18 08:32] LABS: BUN 16 mg/dl (9-23); CHLORIDE 103 mmol/L (98-107); POTASSIUM 2.9 mmol/L (3.4-5.1)
[2023-03-18 15:33] LABS: BUN 15 mg/dl (9-23); CHLORIDE 103 mmol/L (98-107); POTASSIUM 3.3 mmol/L (3.4-5.1)
[2023-03-19] VITALS (12 sets, daily range): BP systolic 92–135; BP diastolic 49–66
[2023-03-19 06:14] LABS: BUN 14 mg/dl (9-23); CHLORIDE 94 mmol/L (98-107)
[2023-03-19 06:21] LABS: HEMATOCRIT 31.2 % (37.0-47.0); MEAN CELL VOLUME 77.6 fl (81.0-99.0); MEAN CORPUSCULAR HGB 19.7 pg (27.0-31.0); MEAN CORPUSCULAR HGB CONC 25.3 g/dl (33.0-37.0); MEAN PLATELET VOLUME 9.2 fl (9.6-12.3); NUCLEATED RED BLOOD CELL 0.1 10*3/uL (0.0-0.0); NUCLEATED RED BLOOD CELL 1.1 % (0.0-0.0); PLATELET COUNT AUTOMATED 271 10*3/uL (130-400); RED BLOOD COUNT 4.02 10*6/uL (4.10-5.10); RED CELL DISTRI WIDTH 21.3 % (0-14.5); WHITE BLOOD COUNT 8.5 10*3/uL (4.8-10.8)
[2023-03-19 06:23] LABS: MANUAL DIFF REFLEX YES
[2023-03-19 07:10] LABS: BASOPHILS 1 % (0-1); MICROCYTOSIS SLIGHT; POLYCHROMASIA SLIGHT; TOTAL CELLS COUNTED 100 #CELLS
[2023-03-19 07:11] LABS: OVALOCYTES FEW; PLATELET SUFFICIENCY NORMAL (NORMAL); ROULEAUX SLIGHT; SCHISTOCYTES FEW; TARGET CELLS FEW
[2023-03-19 08:26] LABS: ABG BASE EXCESS 17.7 mmol/L (-2.0-2.0); ARTERIAL BLOOD GAS PH 7.466 (7.35-7.45)
[2023-03-19 11:20] LABS: BILIRUBIN Negative (Negative); BLOOD Negative (Negative); CLARITY Clear (Clear); COLOR Yellow (Yellow); GLUCOSE Negative (Negative); KETONE Trace (Negative); LEUKO ESTERASE Negative (Negative); NITRITE Negative (Negative); SPECIFIC GRAVITY 1.015 (1.001-1.030); UROBILINOGEN 0.2 E.U./dl (0.0-1.0)
[2023-03-19 12:18] LABS: WBC 0-2 wbc/hpf (0-5); YEAST 2+
[2023-03-19 16:14] LABS: BUN 14 mg/dl (9-23); CHLORIDE 92 mmol/L (98-107); POTASSIUM 3.3 mmol/L (3.4-5.1)
[2023-03-20] VITALS (11 sets, daily range): BP systolic 88–144; BP diastolic 44–75
[2023-03-20 05:51] LABS: POTASSIUM 3.2 mmol/L (3.4-5.1)
[2023-03-20 06:21] LABS: HEMATOCRIT 33.5 % (37.0-47.0); MEAN CELL VOLUME 77.5 fl (81.0-99.0); MEAN CORPUSCULAR HGB 20.1 pg (27.0-31.0); MEAN PLATELET VOLUME 10.3 fl (9.6-12.3); NUCLEATED RED BLOOD CELL 0.1 10*3/uL (0.0-0.0); NUCLEATED RED BLOOD CELL 0.5 % (0.0-0.0); PLATELET COUNT AUTOMATED 322 10*3/uL (130-400); RED BLOOD COUNT 4.32 10*6/uL (4.10-5.10); RED CELL DISTRI WIDTH 21.8 % (0-14.5); WHITE BLOOD COUNT 12.7 10*3/uL (4.8-10.8)
[2023-03-20 06:26] LABS: MANUAL DIFF REFLEX YES
[2023-03-20 07:19] LABS: BASOPHILS 3 % (0-1); TOTAL CELLS COUNTED 100 #CELLS
[2023-03-20 07:20] LABS: MICROCYTOSIS SLIGHT; PLATELET SUFFICIENCY NORMAL (NORMAL)
[2023-03-20 10:14] LABS: ABG BASE EXCESS 14.3 mmol/L (-2.0-2.0); ARTERIAL BLOOD GAS PH 7.44 (7.35-7.45)
[2023-03-20 15:22] LABS: BASO # 0.1 10*3/uL (0.0-0.1); BASO % 0.6 % (0.0-1.0); EOS # 0.2 10*3/uL (0.0-0.4); EOS % 1.1 % (1.0-4.0); LYMPH # 2.4 10*3/uL (1.3-4.4); LYMPH % 15.4 % (27.0-41.0); MEAN CELL VOLUME 76.7 fl (81.0-99.0); MEAN CORPUSCULAR HGB 19.9 pg (27.0-31.0); MEAN CORPUSCULAR HGB CONC 25.9 g/dl (33.0-37.0); MEAN PLATELET VOLUME 9.6 fl (9.6-12.3); MONO # 0.6 10*3/uL (0.1-1.0); MONO % 4.1 % (3.0-9.0); NEUT % 77.6 % (47.0-73.0); NUCLEATED RED BLOOD CELL 0.1 10*3/uL (0.0-0.0); NUCLEATED RED BLOOD CELL 0.5 % (0.0-0.0); PLATELET COUNT AUTOMATED 286 10*3/uL (130-400); RED BLOOD COUNT 4.43 10*6/uL (4.10-5.10); RED CELL DISTRI WIDTH 21.8 % (0-14.5); WHITE BLOOD COUNT 15.5 10*3/uL (4.8-10.8)
[2023-03-20 15:42] LABS: BUN 11 mg/dl (9-23); CHLORIDE 86 mmol/L (98-107); CHOLESTEROL 212 mg/dL (<200)
[2023-03-20 15:48] LABS: POTASSIUM 4.5 mmol/L (3.4-5.1); TRIGLYCERIDES 1241 mg/dl (<150)
[2023-03-20 17:03] LABS: BILIRUBIN Negative (Negative); BLOOD Negative (Negative); CLARITY Clear (Clear); COLOR Dark Yellow (Yellow); GLUCOSE Negative (Negative); KETONE 2+ (Negative); LEUKO ESTERASE Trace (Negative); NITRITE Negative (Negative); SPECIFIC GRAVITY 1.025 (1.001-1.030)
[2023-03-20 17:21] LABS: BACTERIA 1+; MUCOUS 1+
[2023-03-21] VITALS (35 sets, daily range): BP systolic 73–142; BP diastolic 42–77
[2023-03-21 06:17] LABS: BASO # 0.1 10*3/uL (0.0-0.1); BASO % 0.5 % (0.0-1.0); EOS % 0.3 % (1.0-4.0); HEMATOCRIT 32.9 % (37.0-47.0); LYMPH # 2.2 10*3/uL (1.3-4.4); LYMPH % 16.9 % (27.0-41.0); MEAN CELL VOLUME 75.8 fl (81.0-99.0); MEAN CORPUSCULAR HGB 20.3 pg (27.0-31.0); MEAN CORPUSCULAR HGB CONC 26.7 g/dl (33.0-37.0); MONO # 0.7 10*3/uL (0.1-1.0); MONO % 5.4 % (3.0-9.0); NEUT # 9.7 10*3/uL (2.3-7.9); NEUT % 75.9 % (47.0-73.0); NUCLEATED RED BLOOD CELL 0.3 % (0.0-0.0); PLATELET COUNT AUTOMATED 312 10*3/uL (130-400); RED BLOOD COUNT 4.34 10*6/uL (4.10-5.10); WHITE BLOOD COUNT 12.8 10*3/uL (4.8-10.8)
[2023-03-21 06:24] LABS: POTASSIUM 2.7 mmol/L (3.4-5.1)
[2023-03-21 08:21] LABS: ABG BASE EXCESS 15.5 mmol/L (-2.0-2.0); ARTERIAL BLOOD GAS PH 7.441 (7.35-7.45)
[2023-03-21] MEDS ORDERED: GABAPENTIN100 M2 PO (20:37)
[2023-03-21] MEDS ORDERED: ENOXAPARIN120 MG/0.2 SC (20:37)
[2023-03-21] MEDS ORDERED: CHOLESTYRAMINE L4 G1 OGT (20:37)
[2023-03-21] MEDS ORDERED: Metolazone5 MG PO (20:37)
[2023-03-21] MEDS ORDERED: ALDACTONE25 MG PO (20:37)
== END 2023-03-21 23:45 | disposition short-term general hospital (02) | DRG 720 ==
LOC: ED 13:38 → ICCU 18:22 → EDHOLD 18:22 → ICCU 03-12 14:27
PROVIDERS: Family Medicine; Internal Medicine; Internal Medicine Critical Care Medicine; Internal Medicine Infectious Disease; Internal Medicine Pulmonary Disease; Nurse Practitioner Primary Care; Specialist; Student in an Organized Health Care Education/Training Program; ADMIT Internal Medicine; ATTEND Internal Medicine
PROC: 02HV33Z Insertion of Infusion Device into Superior Vena Cava, Percutaneous Approach (ICD-10-PCS; principal; 2023-03-11)
PROC: B548ZZA Ultrasonography of Superior Vena Cava, Guidance (ICD-10-PCS; 2023-03-11)
PROC: 5A09357 Assistance with Respiratory Ventilation, Less than 24 Consecutive Hours, Continuous Positive Airway Pressure (ICD-10-PCS; 2023-03-11)
PROC: 5A0935A Assistance with Respiratory Ventilation, Less than 24 Consecutive Hours, High Flow/Velocity Cannula (ICD-10-PCS; 2023-03-12)
PROC: 5A1955Z Respiratory Ventilation, Greater than 96 Consecutive Hours (ICD-10-PCS; 2023-03-12)
PROC: 0BH17EZ Insertion of Endotracheal Airway into Trachea, Via Natural or Artificial Opening (ICD-10-PCS; 2023-03-12)
PROC: 02HV33Z Insertion of Infusion Device into Superior Vena Cava, Percutaneous Approach (ICD-10-PCS; 2023-03-13)
PROC: B548ZZA Ultrasonography of Superior Vena Cava, Guidance (ICD-10-PCS; 2023-03-13)
PROC: 0BC18ZZ Extirpation of Matter from Trachea, Via Natural or Artificial Opening Endoscopic (ICD-10-PCS; 2023-03-21)
PROC: 0BC98ZZ Extirpation of Matter from Lingula Bronchus, Via Natural or Artificial Opening Endoscopic (ICD-10-PCS; 2023-03-21)
PROC: 0BC48ZZ Extirpation of Matter from Right Upper Lobe Bronchus, Via Natural or Artificial Opening Endoscopic (ICD-10-PCS; 2023-03-21)
PROC: 0BC88ZZ Extirpation of Matter from Left Upper Lobe Bronchus, Via Natural or Artificial Opening Endoscopic (ICD-10-PCS; 2023-03-21)
PROC: 0BC58ZZ Extirpation of Matter from Right Middle Lobe Bronchus, Via Natural or Artificial Opening Endoscopic (ICD-10-PCS; 2023-03-21)
PROC: 0BC38ZZ Extirpation of Matter from Right Main Bronchus, Via Natural or Artificial Opening Endoscopic (ICD-10-PCS; 2023-03-21)
PROC: 0BC78ZZ Extirpation of Matter from Left Main Bronchus, Via Natural or Artificial Opening Endoscopic (ICD-10-PCS; 2023-03-21)
PROC: 0BC68ZZ Extirpation of Matter from Right Lower Lobe Bronchus, Via Natural or Artificial Opening Endoscopic (ICD-10-PCS; 2023-03-21)
PROC: 0BCB8ZZ Extirpation of Matter from Left Lower Lobe Bronchus, Via Natural or Artificial Opening Endoscopic (ICD-10-PCS; 2023-03-21)
PROC: 05HY33Z Insertion of Infusion Device into Upper Vein, Percutaneous Approach (ICD-10-PCS; 2023-03-21)
PROC: B54MZZA Ultrasonography of Right Upper Extremity Veins, Guidance (ICD-10-PCS; 2023-03-21)
DX: A41.9 Sepsis, unspecified organism (principal); J69.0 Pneumonitis due to inhalation of food and vomit; J96.21 Acute and chronic respiratory failure with hypoxia; J96.22 Acute and chronic respiratory failure with hypercapnia; J44.1 Chronic obstructive pulmonary disease with (acute) exacerbation; R65.21 Severe sepsis with septic shock; I50.33 Acute on chronic diastolic (congestive) heart failure; N39.0 Urinary tract infection, site not specified; G47.33 Obstructive sleep apnea (adult) (pediatric); F41.9 Anxiety disorder, unspecified; G89.29 Other chronic pain; M54.50 Low back pain, unspecified; E03.9 Hypothyroidism, unspecified; E78.5 Hyperlipidemia, unspecified; E66.01 Morbid (severe) obesity due to excess calories; E11.65 Type 2 diabetes mellitus with hyperglycemia; R16.0 Hepatomegaly, not elsewhere classified; E44.1 Mild protein-calorie malnutrition; K21.9 Gastro-esophageal reflux disease without esophagitis; E11.69 Type 2 diabetes mellitus with other specified complication; I95.9 Hypotension, unspecified; E87.8 Other disorders of electrolyte and fluid balance, not elsewhere classified; S41.002A Unspecified open wound of left shoulder, initial encounter; E83.42 Hypomagnesemia; I11.0 Hypertensive heart disease with heart failure; B96.20 Unspecified Escherichia coli [E. coli] as the cause of diseases classified elsewhere; I82.A12 Acute embolism and thrombosis of left axillary vein; Z88.0 Allergy status to penicillin; Z88.8 Allergy status to other drugs, medicaments and biological substances; Z88.6 Allergy status to analgesic agent; Z86.711 Personal history of pulmonary embolism; Z91.041 Radiographic dye allergy status; Z90.710 Acquired absence of both cervix and uterus; Z98.891 History of uterine scar from previous surgery; Z87.891 Personal history of nicotine dependence; Z82.49 Family history of ischemic heart disease and other diseases of the circulatory system; Z80.0 Family history of malignant neoplasm of digestive organs; X58.XXXA Exposure to other specified factors, initial encounter; Y93.89 Activity, other specified; Y92.89 Other specified places as the place of occurrence of the external cause; Y99.8 Other external cause status; Z68.41 Body mass index [BMI] 40.0-44.9, adult

== ENCOUNTER 2023-04-30 12:52 | Emergency (ER) | payer OTHER ==
[~2023-04-30] VITALS: Wt 105.7 kg
[~2023-04-30 12:52] MED LIST changes: +ALDACTONE25 MG PO; +CHOLESTYRAMINE L4 G1 OGT; +ENOXAPARIN120 MG/0.2 SC; +GABAPENTIN100 M2 PO; +Metolazone5 MG PO
[2023-04-30 13:24] VITALS: BP 123/57
[2023-04-30] MEDS ORDERED: Ondansetron Hydrochloride 4 MG TAB SL ONE (14:00)
[2023-04-30 14:16] LABS: BASO # 0.1 10*3/uL (0.0-0.1); BASO % 0.6 % (0.0-1.0); EOS # 0.1 10*3/uL (0.0-0.4); EOS % 0.7 % (1.0-4.0); HEMATOCRIT 36.9 % (37.0-47.0); LYMPH # 1.9 10*3/uL (1.3-4.4); LYMPH % 21.9 % (27.0-41.0); MEAN CELL VOLUME 83.7 fl (81.0-99.0); MEAN CORPUSCULAR HGB 23.1 pg (27.0-31.0); MEAN CORPUSCULAR HGB CONC 27.6 g/dl (33.0-37.0); MEAN PLATELET VOLUME 8.3 fl (9.6-12.3); MONO # 0.7 10*3/uL (0.1-1.0); MONO % 7.9 % (3.0-9.0); NEUT # 5.9 10*3/uL (2.3-7.9); NEUT % 68.2 % (47.0-73.0); PLATELET COUNT AUTOMATED 308 10*3/uL (130-400); RED BLOOD COUNT 4.41 10*6/uL (4.10-5.10); RED CELL DISTRI WIDTH 23.7 % (0-14.5); WHITE BLOOD COUNT 8.7 10*3/uL (4.8-10.8)
[2023-04-30 14:27] LABS: ACT PARTIAL THROMBO TIME 28.5 SECONDS (20.0-32.1)
[2023-04-30 14:55] LABS: ALKALINE PHOSPHATASE 95 U/L (46-116); BUN 8 mg/dl (9-23); CHLORIDE 95 mmol/L (98-107); POTASSIUM 3.2 mmol/L (3.4-5.1); SGPT/ALT 11 U/L (5-49); TOTAL PROTEIN 6.4 gm/dL (6.0-8.0)
[2023-04-30] MEDS ORDERED: Promethazine Hydrochloride 25 MG TAB PO ONE (15:10)
[2023-04-30] MEDS ORDERED: Doxycycline Hyclate 100 MG CAP PO ONE (15:10)
[2023-04-30] MEDS ORDERED: MAGNESIUM SULFATE 50 ML IV ONE (15:10)
[2023-04-30] MEDS ORDERED: ONDANSETRON4 MG SL (15:12)
[2023-04-30] MEDS ORDERED: MAGNESIUM OXID400 MG PO (15:12)
[2023-04-30] MEDS ORDERED: VIBRA-TAB100 MG PO (15:12)
== END 2023-04-30 17:01 | disposition home or self-care (01) ==
LOC: ED 12:52
PROVIDERS: Emergency Medicine
DX: L03.116 Cellulitis of left lower limb (principal); E83.42 Hypomagnesemia; F32.A Depression, unspecified; J44.9 Chronic obstructive pulmonary disease, unspecified; E11.9 Type 2 diabetes mellitus without complications; I50.9 Heart failure, unspecified; Z88.8 Allergy status to other drugs, medicaments and biological substances; Z88.0 Allergy status to penicillin; Z88.5 Allergy status to narcotic agent; Z91.041 Radiographic dye allergy status; Z90.710 Acquired absence of both cervix and uterus; Z90.49 Acquired absence of other specified parts of digestive tract; Z98.890 Other specified postprocedural states; Z95.5 Presence of coronary angioplasty implant and graft; Z87.891 Personal history of nicotine dependence

== ENCOUNTER → 2023-07-23 | Outpatient (CLI) | payer OTHER ==
[~2023-07-23] MED LIST changes: +MAGNESIUM OXID400 MG PO; +ONDANSETRON4 MG SL; +VIBRA-TAB100 MG PO
== END | disposition home or self-care (01) ==
LOC: ORTHO 03:40
PROVIDERS: ATTEND Orthopaedic Surgery
DX: M17.0 Bilateral primary osteoarthritis of knee (principal); M25.762 Osteophyte, left knee; M25.761 Osteophyte, right knee; M25.461 Effusion, right knee; I70.0 Atherosclerosis of aorta

== ENCOUNTER → 2023-12-02 | Outpatient (CLI) | payer OTHER | END | disposition home or self-care (01) | LOC: MRI 00:29 | PROVIDERS: ATTEND Anesthesiology | DX: M47.816 Spondylosis without myelopathy or radiculopathy, lumbar region (principal) ==

== ENCOUNTER → 2024-02-11 | Day surgery (SDC) | payer OTHER ==
[~2024-02-11] VITALS: Ht 162.5 cm; Wt 95.7 kg
[~2024-02-11] MED LIST changes: +Balanced Salt Solution 500 ML OPH SCH; +Midazolam Hydrochloride 2 MG/2 ML VIAL IV ONE; +OFLOXACIN 0.3% 5 ML BOTTLE ONE; +OFLOXACIN 0.3% 5 ML BOTTLE OPH SCH; +OXYGEN NAS; +PHENYLEPHRINE/KETOROLAC 4 ML in Balanced Salt Solution 500 ML OPH SCH; +POVIDONE IODINE 5% OPHTHALMIC 30 ML BOTTLE OPH ONE; +POVIDONE IODINE 5% OPHTHALMIC 30 ML BOTTLE OPH SCH; +Phenylephrine Hydrochloride 2 ML BOT OPH ONE; +Phenylephrine Hydrochloride 2 ML BOT OPH SCH; +Proparacaine Hydrochloride 15 ML BOT OPH ONE; +Proparacaine Hydrochloride 15 ML BOT OPH SCH; +SODIUM CHLORIDE 0.9% 1,000 ML IV SCH; +TETRACAINE HCL 10 DROP BOT OPH SCH; +TROPICAMIDE 3 ML BOT OPH ONE; +TROPICAMIDE 3 ML BOT OPH SCH; +Tetracaine Hydrochloride 0.5% 4 ML BOT OPH ONE; +Tetracaine Hydrochloride 0.5% 4 ML BOT OPH SCH; +prednisoLONE acetate 1% OPHTHALMIC 5 ML BOT OPH ONE; +prednisoLONE acetate 1% OPHTHALMIC 5 ML BOT OPH SCH
[2024-02-11 07:30] VITALS: BP 156/73
[2024-02-11 09:48] VITALS: BP 143/65
[2024-02-11 10:03] VITALS: BP 125/50
[2024-02-11 10:15] VITALS: BP 137/55
== END | disposition home or self-care (01) ==
LOC: SDC 02-06 10:15
PROVIDERS: ATTEND Ophthalmology
DX: E10.36 Type 1 diabetes mellitus with diabetic cataract (principal); H25.12 Age-related nuclear cataract, left eye; I11.0 Hypertensive heart disease with heart failure; I50.9 Heart failure, unspecified; G43.909 Migraine, unspecified, not intractable, without status migrainosus; J44.9 Chronic obstructive pulmonary disease, unspecified; E03.9 Hypothyroidism, unspecified; K21.9 Gastro-esophageal reflux disease without esophagitis; E78.5 Hyperlipidemia, unspecified; F41.9 Anxiety disorder, unspecified; F32.A Depression, unspecified; G47.30 Sleep apnea, unspecified; Z90.49 Acquired absence of other specified parts of digestive tract; Z98.891 History of uterine scar from previous surgery; Z87.891 Personal history of nicotine dependence; Z90.710 Acquired absence of both cervix and uterus; Z87.440 Personal history of urinary (tract) infections; Z79.890 Hormone replacement therapy; Z79.899 Other long term (current) drug therapy; Z88.0 Allergy status to penicillin; Z88.5 Allergy status to narcotic agent; Z91.041 Radiographic dye allergy status; Z88.8 Allergy status to other drugs, medicaments and biological substances; Z91.048 Other nonmedicinal substance allergy status; Z98.890 Other specified postprocedural states; Z80.0 Family history of malignant neoplasm of digestive organs

== ENCOUNTER → 2024-03-22 | Outpatient (CLI) | payer OTHER ==
[~2024-03-22] MED LIST changes: -Balanced Salt Solution 500 ML OPH SCH; -Midazolam Hydrochloride 2 MG/2 ML VIAL IV ONE; -OFLOXACIN 0.3% 5 ML BOTTLE ONE; -OFLOXACIN 0.3% 5 ML BOTTLE OPH SCH; -PHENYLEPHRINE/KETOROLAC 4 ML in Balanced Salt Solution 500 ML OPH SCH; -POVIDONE IODINE 5% OPHTHALMIC 30 ML BOTTLE OPH ONE; -POVIDONE IODINE 5% OPHTHALMIC 30 ML BOTTLE OPH SCH; -Phenylephrine Hydrochloride 2 ML BOT OPH ONE; -Phenylephrine Hydrochloride 2 ML BOT OPH SCH; -Proparacaine Hydrochloride 15 ML BOT OPH ONE; -Proparacaine Hydrochloride 15 ML BOT OPH SCH; -SODIUM CHLORIDE 0.9% 1,000 ML IV SCH; -TETRACAINE HCL 10 DROP BOT OPH SCH; -TROPICAMIDE 3 ML BOT OPH ONE; -TROPICAMIDE 3 ML BOT OPH SCH; -Tetracaine Hydrochloride 0.5% 4 ML BOT OPH ONE; -Tetracaine Hydrochloride 0.5% 4 ML BOT OPH SCH; -prednisoLONE acetate 1% OPHTHALMIC 5 ML BOT OPH ONE; -prednisoLONE acetate 1% OPHTHALMIC 5 ML BOT OPH SCH
== END | disposition home or self-care (01) ==
LOC: LAB 11:47
PROVIDERS: ATTEND Nurse Practitioner Primary Care
DX: R19.5 Other fecal abnormalities (principal)

== ENCOUNTER → 2024-05-12 | Day surgery (SDC) | payer OTHER ==
[~2024-05-12] VITALS: Ht 162.5 cm; Wt 95.3 kg
[~2024-05-12] MED LIST changes: +Balanced Salt Solution 500 ML OPH SCH; +Midazolam Hydrochloride 2 MG/2 ML VIAL IV ONE; +OFLOXACIN 0.3% 5 ML BOTTLE ONE; +OFLOXACIN 0.3% 5 ML BOTTLE OPH SCH; +PHENYLEPHRINE/KETOROLAC 4 ML in Balanced Salt Solution 500 ML OPH SCH; +POVIDONE IODINE 5% OPHTHALMIC 30 ML BOTTLE OPH ONE; +POVIDONE IODINE 5% OPHTHALMIC 30 ML BOTTLE OPH SCH; +Phenylephrine Hydrochloride 2 ML BOT OPH ONE; +Phenylephrine Hydrochloride 2 ML BOT OPH SCH; +Proparacaine Hydrochloride 15 ML BOT OPH ONE; +Proparacaine Hydrochloride 15 ML BOT OPH SCH; +SODIUM CHLORIDE 0.9% 1,000 ML IV SCH; +TROPICAMIDE 3 ML BOT OPH ONE; +TROPICAMIDE 3 ML BOT OPH SCH; +Tetracaine Hydrochloride 0.5% 4 ML BOT OPH ONE; +Tetracaine Hydrochloride 0.5% 4 ML BOT OPH SCH; +prednisoLONE acetate 1% OPHTHALMIC 5 ML BOT OPH ONE; +prednisoLONE acetate 1% OPHTHALMIC 5 ML BOT OPH SCH
[2024-05-12 07:13] VITALS: BP 135/54
[2024-05-12 08:08] VITALS: BP 111/36
[2024-05-12 08:23] VITALS: BP 114/53
[2024-05-12 08:34] VITALS: BP 114/37
== END | disposition home or self-care (01) ==
LOC: SDC 04-12 08:45
PROVIDERS: ATTEND Ophthalmology
DX: E11.36 Type 2 diabetes mellitus with diabetic cataract (principal); H25.11 Age-related nuclear cataract, right eye; I13.0 Hypertensive heart and chronic kidney disease with heart failure and stage 1 through stage 4 chronic kidney disease, or unspecified chronic kidney disease; E11.22 Type 2 diabetes mellitus with diabetic chronic kidney disease; N18.9 Chronic kidney disease, unspecified; I50.9 Heart failure, unspecified; G43.909 Migraine, unspecified, not intractable, without status migrainosus; J44.9 Chronic obstructive pulmonary disease, unspecified; K21.9 Gastro-esophageal reflux disease without esophagitis; F41.9 Anxiety disorder, unspecified; F32.A Depression, unspecified; G47.30 Sleep apnea, unspecified; Z87.891 Personal history of nicotine dependence; Z90.49 Acquired absence of other specified parts of digestive tract; Z98.891 History of uterine scar from previous surgery; Z90.710 Acquired absence of both cervix and uterus; Z87.440 Personal history of urinary (tract) infections; Z98.890 Other specified postprocedural states; Z91.040 Latex allergy status; Z88.0 Allergy status to penicillin; Z88.5 Allergy status to narcotic agent; Z91.048 Other nonmedicinal substance allergy status; Z88.8 Allergy status to other drugs, medicaments and biological substances; Z79.890 Hormone replacement therapy; Z79.899 Other long term (current) drug therapy

== ENCOUNTER → 2024-08-18 | Outpatient (CLI) | payer OTHER ==
[~2024-08-18] MED LIST changes: -Balanced Salt Solution 500 ML OPH SCH; -Midazolam Hydrochloride 2 MG/2 ML VIAL IV ONE; -OFLOXACIN 0.3% 5 ML BOTTLE ONE; -OFLOXACIN 0.3% 5 ML BOTTLE OPH SCH; -PHENYLEPHRINE/KETOROLAC 4 ML in Balanced Salt Solution 500 ML OPH SCH; -POVIDONE IODINE 5% OPHTHALMIC 30 ML BOTTLE OPH ONE; -POVIDONE IODINE 5% OPHTHALMIC 30 ML BOTTLE OPH SCH; -Phenylephrine Hydrochloride 2 ML BOT OPH ONE; -Phenylephrine Hydrochloride 2 ML BOT OPH SCH; -Proparacaine Hydrochloride 15 ML BOT OPH ONE; -Proparacaine Hydrochloride 15 ML BOT OPH SCH; -SODIUM CHLORIDE 0.9% 1,000 ML IV SCH; -TROPICAMIDE 3 ML BOT OPH ONE; -TROPICAMIDE 3 ML BOT OPH SCH; -Tetracaine Hydrochloride 0.5% 4 ML BOT OPH ONE; -Tetracaine Hydrochloride 0.5% 4 ML BOT OPH SCH; -prednisoLONE acetate 1% OPHTHALMIC 5 ML BOT OPH ONE; -prednisoLONE acetate 1% OPHTHALMIC 5 ML BOT OPH SCH
== END | disposition home or self-care (01) ==
LOC: MAMMO 08:00
PROVIDERS: ATTEND Nurse Practitioner Women's Health
DX: N63.32 Unspecified lump in axillary tail of the left breast (principal); R92.313 Mammographic fatty tissue density, bilateral breasts; D17.39 Benign lipomatous neoplasm of skin and subcutaneous tissue of other sites